=== PATIENT | female | born 1950 | race African-American/Black ===

== ENCOUNTER 2018-01-31 15:17 | Inpatient (IN) | payer MEDICARE, MEDICAID ==
[~2018-01-31] VITALS: Ht 172.7 cm; Wt 90.7 kg
[~2018-01-31 15:17] MED LIST: ACET1TAB12 PO; AMLO10TA80 PO; DIPH25CA83 PO; GABA-529 PO; LISI10TA5 PO; LOSA50TA20 PO; RANI150T7 PO; SEVE800T8 PO; SIMV20TA6 PO
[2018-01-31] MEDS ORDERED: ONDANSETRON HCL 4MG/2ML VIAL IV STA (16:26)
[2018-01-31] MEDS ORDERED: FUROSEMIDE 40MG/4ML VIAL IV STA (16:26)
[2018-01-31 16:55] LABS: BG BASE EXCESS -2.8 mmol/L (-2.0-2.0); BG CARBOXYHEMOGLOBIN 1.2 % (0.5-1.5); BG DEOXYHEMOGLOBIN 9.4 % (0.0-5.0); BG FRACTION INSPIRED OXYGEN 28; BG HCO3 ACT 22.8 mmol/L (22.0-26.0); BG METHEMOGLOBIN 0.3 % (0.0-1.5); BG OXYGEN SATURATION 90.5 % (92.0-98.5); BG OXYHEMOGLOBIN 89.1 % (94.0-97.0); BG PCO2 42.5 mmHg (35.0-45.0); BG PH 7.347 (7.350-7.450); BG PO2 65.6 mmHg (75.0-100.0); BG SAMPLE SITE RIGHT BRACHIAL; BG TOTAL HEMOGLOBIN 11.1 g/dL (12.0-18.0); BG VENT MODE NASAL CANNULA
[2018-01-31 16:57] LABS: HEMATOCRIT. 31.7 % (36.0-48.0); HEMOGLOBIN. 10.4 g/dL (12.0-16.0); MEAN CORPUSCULAR VOLUME 91.3 fL (81.0-99.0); MEAN PLATELET VOLUME 9.1 fl (7.4-10.4); PLATELET 126 x1000/uL (130-400); RED BLOOD CELL COUNT 3.48 mill/uL (4.2-5.4); RED CELL DISTRIBUTION WIDTH 14.3 % (11.6-14.6)
[2018-01-31 16:59] LABS: D-DIMER 0.56 mg/L FEU (<0.50); INR 1.1; PROTHROMBIN TIME 11.8 sec (9.4-11.6)
[2018-01-31 17:02] LABS: CREATINE KINASE 168 IU/L (26-192)
[2018-01-31 17:04] LABS: CHLORIDE 107 mEq/L (98-107)
[2018-01-31 17:14] LABS: PLATELET ESTIMATE DECREASED
[2018-01-31] MEDS ORDERED: IPRATROPIUM/ALBUTEROL 0.5-3(2.5)MG/3ML NEB HHN ONE (17:45)
[2018-01-31] MEDS ORDERED: FUROSEMIDE 100MG/10ML VIAL IV STA (19:12)
[2018-01-31] MEDS ORDERED: PIPERACILLIN/TAZ 3.375G PREMIX 50 ML IV ONE (19:15)
[2018-01-31] MEDS ORDERED: CALCIUM CHLORIDE 1GM/10ML SYR IV ONE (19:15)
[2018-01-31] MEDS ORDERED: SODIUM BICARBONATE 8.4% 1 MEQ/ML 50ML SYR IV ONE (19:15)
[2018-01-31] MEDS ORDERED: SODIUM POLYSTYRENE SULFONATE 15 G/60 ML BOT PO ONE (19:15)
[2018-01-31] MEDS ORDERED: ONDANSETRON HCL 4MG/2ML VIAL IV PRN (21:45)
[2018-01-31] MEDS ORDERED: MAGNESIUM/ALUMINUM HYDROXIDE/SIMETHICONE 30ML UDC PO PRN (21:45)
[2018-01-31] MEDS ORDERED: IPRATROPIUM/ALBUTEROL 0.5-3(2.5)MG/3ML NEB INH PRN (21:45)
[2018-01-31] MEDS ORDERED: CLONIDINE 0.1MG TABLET PO PRN (21:45)
[2018-01-31 22:30] VITALS: BP 163/123
[2018-01-31 23:00] VITALS: BP 204/90
[2018-01-31] MEDS: SODIUM CHLORIDE 0.9% INJ 3ML FLUSH IVF SCH (23:00)
[2018-02-01] VITALS (15 sets, daily range): BP systolic 107–190; BP diastolic 45–91
[2018-02-01] MEDS: SODIUM CHLORIDE 0.9% INJ 3ML FLUSH IVF SCH ×3 (06:19→21:06)
[2018-02-01] MEDS ORDERED: LISINOPRIL 10MG TABLET PO SCH (09:00)
[2018-02-01 09:12] LABS: HEMATOCRIT. 29.1 % (36.0-48.0); HEMOGLOBIN. 9.8 g/dL (12.0-16.0); MEAN CORPUSCULAR HEMOGLOBIN 30.5 pg (28.0-32.0); MEAN PLATELET VOLUME 9.6 fl (7.4-10.4); PLATELET 106 x1000/uL (130-400); RED CELL DISTRIBUTION WIDTH 14.1 % (11.6-14.6)
[2018-02-01] MEDS: AMLODIPINE 10MG TABLET PO SCH (09:38)
[2018-02-01] MEDS: SEVELAMER CARBONATE 800 MG TABLET PO SCH (09:38)
[2018-02-01] MEDS: GABAPENTIN 100MG CAPSULE PO SCH ×3 (09:39→16:51)
[2018-02-01 09:53] LABS: PLATELET ESTIMATE DECREASED
[2018-02-01] MEDS ORDERED: LEVOFLOXACIN 500MG TABLET PO SCH (14:00)
[2018-02-01] MEDS ORDERED: PIPERACILLIN/TAZ 3.375G PREMIX 50 ML IV SCH (14:15)
[2018-02-01] MEDS: HYDRALAZINE HCL 50MG TABLET PO SCH ×2 (15:11→21:06)
[2018-02-01] MEDS: PIPERACILLIN/TAZ 2.25G PREMIX 50 ML IV SCH (16:05)
[2018-02-01] MEDS ORDERED: VANCOMYCIN 1,750 MG in DEXT 5% WATER 500 ML IV NR (17:00)
[2018-02-01] MEDS ORDERED: VANCOMYCIN 1,500 MG in DEXT 5% WATER 250 ML IV NR (18:00)
[2018-02-01] MEDS: IPRATROPIUM/ALBUTEROL 0.5-3(2.5)MG/3ML NEB HHN SCH (20:20)
[2018-02-01] MEDS: GUAIFENESIN 600MG ER TABLET PO SCH (21:06)
[2018-02-02] VITALS (14 sets, daily range): BP systolic 96–137; BP diastolic 42–67
[2018-02-02] MEDS: IPRATROPIUM/ALBUTEROL 0.5-3(2.5)MG/3ML NEB HHN SCH ×4 (01:54→20:24)
[2018-02-02] MEDS: SODIUM CHLORIDE 0.9% INJ 3ML FLUSH IVF SCH ×3 (05:19→21:48)
[2018-02-02] MEDS: PIPERACILLIN/TAZ 2.25G PREMIX 50 ML IV SCH ×2 (05:19→18:17)
[2018-02-02] MEDS: HYDRALAZINE HCL 50MG TABLET PO SCH ×3 (05:19→21:48)
[2018-02-02 06:56] LABS: HEMATOCRIT. 28.9 % (36.0-48.0); HEMOGLOBIN. 9.7 g/dL (12.0-16.0); MEAN CORPUSCULAR HEMOGLOBIN 30.4 pg (28.0-32.0); MEAN CORPUSCULAR VOLUME 90.9 fL (81.0-99.0); PLATELET 105 x1000/uL (130-400); RED BLOOD CELL COUNT 3.19 mill/uL (4.2-5.4)
[2018-02-02 08:12] LABS: PLATELET ESTIMATE DECREASED
[2018-02-02] MEDS: GABAPENTIN 100MG CAPSULE PO SCH ×3 (08:49→17:00)
[2018-02-02] MEDS: SEVELAMER CARBONATE 800 MG TABLET PO SCH ×3 (08:49→18:16)
[2018-02-02] MEDS: GUAIFENESIN 600MG ER TABLET PO SCH ×2 (08:49→20:14)
[2018-02-02] MEDS: AMLODIPINE 10MG TABLET PO SCH (08:49)
[2018-02-02] MEDS ORDERED: VANCOMYCIN 750 MG PREMIX 150 ML IV SCH (20:00)
[2018-02-03] VITALS (12 sets, daily range): BP systolic 103–154; BP diastolic 47–80
[2018-02-03] MEDS: IPRATROPIUM/ALBUTEROL 0.5-3(2.5)MG/3ML NEB HHN SCH ×4 (02:19→20:45)
[2018-02-03 04:53] LABS: BG BASE EXCESS 3.8 mmol/L (-2.0-2.0); BG CARBOXYHEMOGLOBIN 0.5 % (0.5-1.5); BG DEOXYHEMOGLOBIN 17.5 % (0.0-5.0); BG FRACTION INSPIRED OXYGEN 21; BG HCO3 ACT 28.1 mmol/L (22.0-26.0); BG METHEMOGLOBIN 0.3 % (0.0-1.5); BG OXYGEN SATURATION 82.4 % (92.0-98.5); BG OXYHEMOGLOBIN 81.7 % (94.0-97.0); BG PCO2 41.3 mmHg (35.0-45.0); BG PH 7.451 (7.350-7.450); BG PO2 46.9 mmHg (75.0-100.0); BG SAMPLE SITE RIGHT RADIAL; BG TOTAL HEMOGLOBIN 11.3 g/dL (12.0-18.0); BG VENT MODE ROOM AIR
[2018-02-03] MEDS: SODIUM CHLORIDE 0.9% INJ 3ML FLUSH IVF SCH ×3 (05:35→20:58)
[2018-02-03] MEDS: HYDRALAZINE HCL 50MG TABLET PO SCH ×3 (05:36→21:01)
[2018-02-03] MEDS: PIPERACILLIN/TAZ 2.25G PREMIX 50 ML IV SCH ×2 (05:36→17:22)
[2018-02-03 06:59] LABS: HEMATOCRIT. 30.4 % (36.0-48.0); MEAN CORPUSCULAR HEMOGLOBIN 30.1 pg (28.0-32.0); MEAN CORPUSCULAR VOLUME 91.2 fL (81.0-99.0); MEAN PLATELET VOLUME 9.8 fl (7.4-10.4); PLATELET 140 x1000/uL (130-400); RED BLOOD CELL COUNT 3.33 mill/uL (4.2-5.4)
[2018-02-03] MEDS: ACETAMINOPHEN 325MG TABLET PO PRN ×2 (07:04→15:43)
[2018-02-03] MEDS: SEVELAMER CARBONATE 800 MG TABLET PO SCH ×3 (08:00→17:22)
[2018-02-03] MEDS: AMLODIPINE 10MG TABLET PO SCH (09:00)
[2018-02-03] MEDS: GUAIFENESIN 600MG ER TABLET PO SCH ×2 (09:00→20:58)
[2018-02-03] MEDS: GABAPENTIN 100MG CAPSULE PO SCH ×3 (09:00→17:22)
[2018-02-03 09:16] LABS: PLATELET ESTIMATE NORMAL
[2018-02-04] VITALS (12 sets, daily range): BP systolic 99–142; BP diastolic 45–72
[2018-02-04] MEDS: IPRATROPIUM/ALBUTEROL 0.5-3(2.5)MG/3ML NEB HHN SCH ×4 (02:15→19:39)
[2018-02-04] MEDS: SODIUM CHLORIDE 0.9% INJ 3ML FLUSH IVF SCH ×3 (06:04→20:28)
[2018-02-04] MEDS: PIPERACILLIN/TAZ 2.25G PREMIX 50 ML IV SCH ×2 (06:04→17:09)
[2018-02-04] MEDS: HYDRALAZINE HCL 50MG TABLET PO SCH ×3 (06:07→20:28)
[2018-02-04] MEDS: DIPHENHYDRAMINE 50MG/ML VIAL IV PRN (06:09)
[2018-02-04] MEDS: GABAPENTIN 100MG CAPSULE PO SCH ×3 (08:20→17:09)
[2018-02-04] MEDS: SEVELAMER CARBONATE 800 MG TABLET PO SCH ×3 (08:20→17:09)
[2018-02-04] MEDS: AMLODIPINE 10MG TABLET PO SCH (08:21)
[2018-02-04] MEDS: GUAIFENESIN 600MG ER TABLET PO SCH ×2 (08:41→20:26)
[2018-02-04] MEDS: ACETAMINOPHEN 325MG TABLET PO PRN (13:06)
[2018-02-05] VITALS (11 sets, daily range): BP systolic 119–151; BP diastolic 55–76
[2018-02-05] MEDS: DIPHENHYDRAMINE 50MG/ML VIAL IV PRN (00:13)
[2018-02-05] MEDS: IPRATROPIUM/ALBUTEROL 0.5-3(2.5)MG/3ML NEB HHN SCH ×4 (01:50→14:10)
[2018-02-05] MEDS: SODIUM CHLORIDE 0.9% INJ 3ML FLUSH IVF SCH ×2 (06:32→13:50)
[2018-02-05] MEDS: PIPERACILLIN/TAZ 2.25G PREMIX 50 ML IV SCH ×2 (06:32→18:13)
[2018-02-05] MEDS: HYDRALAZINE HCL 50MG TABLET PO SCH ×2 (06:32→13:50)
[2018-02-05] MEDS: SEVELAMER CARBONATE 800 MG TABLET PO SCH ×3 (08:42→18:15)
[2018-02-05] MEDS: GABAPENTIN 100MG CAPSULE PO SCH ×3 (08:42→18:13)
[2018-02-05] MEDS: GUAIFENESIN 600MG ER TABLET PO SCH (08:43)
[2018-02-05] MEDS: AMLODIPINE 10MG TABLET PO SCH (08:43)
[2018-02-05 10:12] LABS: HEMATOCRIT. 30.7 % (36.0-48.0); HEMOGLOBIN. 10.1 g/dL (12.0-16.0); MEAN CORPUSCULAR HEMOGLOBIN 29.8 pg (28.0-32.0); MEAN CORPUSCULAR VOLUME 90.4 fL (81.0-99.0); PLATELET 153 x1000/uL (130-400); RED BLOOD CELL COUNT 3.39 mill/uL (4.2-5.4); RED CELL DISTRIBUTION WIDTH 13.6 % (11.6-14.6)
[2018-02-05 12:17] LABS: PLATELET ESTIMATE NORMAL
[2018-02-05] MEDS ORDERED: VANCOMYCIN 1 G PREMIX 200 ML IV SCH (16:00)
== END 2018-02-05 20:10 | disposition home or self-care (01) | DRG 720 ==
LOC: ER 15:47 → 5EST 19:39 → EDBEDREQ 19:42 → EDBEDREQTM 19:42 → ENRESERV 19:43 → 5EST 02-03 07:00
PROVIDERS: ADMIT Internal Medicine; ATTEND Internal Medicine
PROC: 5A1D70Z Performance of Urinary Filtration, Intermittent, Less than 6 Hours Per Day (ICD-10-PCS; principal; 2018-01-31)
PROC: 5A1D70Z Performance of Urinary Filtration, Intermittent, Less than 6 Hours Per Day (ICD-10-PCS; 2018-02-02)
PROC: 5A1D70Z Performance of Urinary Filtration, Intermittent, Less than 6 Hours Per Day (ICD-10-PCS; 2018-02-05)
DX: A41.9 Sepsis, unspecified organism (principal); J96.01 Acute respiratory failure with hypoxia; I50.33 Acute on chronic diastolic (congestive) heart failure; E46 Unspecified protein-calorie malnutrition; N18.6 End stage renal disease; E11.22 Type 2 diabetes mellitus with diabetic chronic kidney disease; J18.1 Lobar pneumonia, unspecified organism; I27.20 Pulmonary hypertension, unspecified; I13.2 Hypertensive heart and chronic kidney disease with heart failure and with stage 5 chronic kidney disease, or end stage renal disease; I07.1 Rheumatic tricuspid insufficiency; E87.5 Hyperkalemia; E66.01 Morbid (severe) obesity due to excess calories; D64.9 Anemia, unspecified; J20.9 Acute bronchitis, unspecified; Z68.30 Body mass index [BMI] 30.0-30.9, adult; Z83.3 Family history of diabetes mellitus; Z91.15 Patient's noncompliance with renal dialysis; Z99.2 Dependence on renal dialysis; Z88.6 Allergy status to analgesic agent; Z88.1 Allergy status to other antibiotic agents; Z79.899 Other long term (current) drug therapy; Z90.49 Acquired absence of other specified parts of digestive tract; Z88.0 Allergy status to penicillin; Z80.9 Family history of malignant neoplasm, unspecified
CPT/HCPCS: 36415; 36600; 71045; 80048; 80051; 80053; 80202; 82375; 82550; 82805; 82962; 83605; 83690; 83880; 84443; 84484; 85025; 85379; 85610; 87040; 87077; 87186; 93005; 94640; 96365; 96375; 96376; 97162; 97166; 99285; J1200; J1940; J2543; J3370; J3490; J7030; J7050; J7060; J7620

== ENCOUNTER 2018-07-24 10:12 | Inpatient (IN) | payer MEDICARE, MEDICAID ==
[~2018-07-24] VITALS: Ht 160 cm; Wt 65.8 kg
[2018-07-24] MEDS ORDERED: ONDANSETRON HCL 4MG/2ML INJ IV STA (11:09)
[2018-07-24] MEDS ORDERED: MORPHINE SULFATE 4 MG/ML CPJ (NOT FOR IM USE) IV STA (11:09)
[2018-07-24 11:50] LABS: BASOPHILS % 0.5 % (0.0-2.0); HEMOGLOBIN. 10.1 g/dL (12.0-16.0); LYMPHOCYTES % 13.1 % (20.0-50.0); MEAN PLATELET VOLUME 8.5 fl (7.4-10.4); MONOCYTES % 13.9 % (2.0-8.0); NEUTROPHILS % 71.5 % (40.0-76.0); PLATELET 213 x1000/uL (130-400); RED BLOOD CELL COUNT 3.26 mill/uL (4.2-5.4); RED CELL DISTRIBUTION WIDTH 13.9 % (11.6-14.6)
[2018-07-24 11:57] LABS: CHLORIDE 88 mEq/L (98-107)
[2018-07-24 11:58] LABS: INR 1.2; PROTHROMBIN TIME 11.6 sec (9.1-11.1)
[2018-07-24] MEDS ORDERED: INSULIN REGULAR (HUMULIN R) 300UNITS/3ML IV ONE (13:45)
[2018-07-24] MEDS ORDERED: CALCIUM CHLORIDE 1GM/10ML SYR IV ONE (13:45)
[2018-07-24] MEDS ORDERED: SODIUM POLYSTYRENE SULFONATE 15 G/60 ML BOT PO ONE (13:45)
[2018-07-24] MEDS ORDERED: SODIUM BICARBONATE 8.4% 1 MEQ/ML 50ML SYR IV ONE (13:45)
[2018-07-24] MEDS ORDERED: DEXTROSE 50% WATER 50ML SYRINGE IV ONE (13:45)
[2018-07-24] MEDS ORDERED: ONDANSETRON HCL 4MG/2ML INJ IV PRN (14:45)
[2018-07-24] MEDS ORDERED: DEXTROSE 50% WATER 50ML SYRINGE IV PRN (14:45)
[2018-07-24] MEDS: INSULIN LISPRO 100 UNITS/ML SUBCUT SCH ×2 (17:26→21:47)
[2018-07-24] MEDS: BLOOD SUGAR DIAGNOSTIC STRIP TEST SCH ×2 (17:26→21:37)
[2018-07-24 18:19] VITALS: BP 120/53
[2018-07-24 18:20] VITALS: BP 120/53
[2018-07-24] MEDS ORDERED: HYDRALAZINE 20MG/ML VIAL IV PRN (18:30)
[2018-07-24 20:00] VITALS: BP 103/48
[2018-07-24] MEDS ORDERED: LACTULOSE 20G/30ML UDC PO PRN (21:00)
[2018-07-24] MEDS: DOCUSATE SODIUM 250MG CAPSULE PO SCH (21:46)
[2018-07-24] MEDS ORDERED: CIPR500S3 PO (22:25)
[2018-07-24] MEDS ORDERED: SULF-288 PO (22:28)
[2018-07-25] VITALS: BP 116/53
[2018-07-25] MEDS ORDERED: DIPHENHYDRAMINE 25MG CAPSULE PO PRN (02:45)
[2018-07-25] MEDS: ACETAMINOPHEN 325MG TABLET PO PRN (03:05)
[2018-07-25 04:00] VITALS: BP 121/97
[2018-07-25 04:34] LABS: CLARITY URINE CLOUDY (CLEAR); COLOR URINE AMBER (YELLOW); KETONES URINE TRACE (NEGATIVE); LEUKOCYTE ESTERASE URINE 1+ (NEGATIVE); NITRITE URINE NEGATIVE (NEGATIVE); OCCULT BLOOD URINE NEGATIVE (NEGATIVE); PROTEIN URINE 1+ (NEGATIVE); SPECIFIC GRAVITY URINE 1.017 (1.005-1.030); UROBILINOGEN URINE 0.2 E.U./dL (0.2-1.0)
[2018-07-25] MEDS: BLOOD SUGAR DIAGNOSTIC STRIP TEST SCH ×4 (06:02→20:23)
[2018-07-25 07:15] LABS: HEMATOCRIT. 28.4 % (36.0-48.0); HEMOGLOBIN. 9.6 g/dL (12.0-16.0); MEAN CORPUSCULAR HEMOGLOBIN 31.1 pg (28.0-32.0); MEAN CORPUSCULAR VOLUME 92.2 fL (81.0-99.0); MEAN PLATELET VOLUME 8.7 fl (7.4-10.4); PLATELET 183 x1000/uL (130-400); RED BLOOD CELL COUNT 3.08 mill/uL (4.2-5.4); RED CELL DISTRIBUTION WIDTH 14.3 % (11.6-14.6)
[2018-07-25 08:00] VITALS: BP 96/50
[2018-07-25] MEDS: DOCUSATE SODIUM 250MG CAPSULE PO SCH (08:53)
[2018-07-25] MEDS: INSULIN LISPRO 100 UNITS/ML SUBCUT SCH ×4 (08:57→20:23)
[2018-07-25 12:00] VITALS: BP 117/46
[2018-07-25 14:05] LABS: PLATELET ESTIMATE NORMAL
[2018-07-25] MEDS ORDERED: VANCOMYCIN 1250MG in DEXTROSE 5% WATER 250ML IV NR (18:00)
[2018-07-25 20:00] VITALS: BP 122/37
[2018-07-25] MEDS ORDERED: MAGNESIUM/ALUMINUM HYDROXIDE/SIMETHICONE 30ML UDC PO PRN (23:15)
[2018-07-26 00:05] VITALS: BP 133/59
[2018-07-26 04:00] VITALS: BP 118/56
[2018-07-26 07:28] LABS: HEMATOCRIT 29.4 % (36.0-48.0); HEMOGLOBIN 9.8 g/dL (12.0-16.0); MEAN CORPUSCULAR HEMOGLOBIN 30.7 pg (28.0-32.0); MEAN CORPUSCULAR VOLUME 92.3 fL (81.0-99.0); PLATELET 183 x1000/uL (130-400); RED BLOOD CELL COUNT 3.18 mill/uL (4.2-5.4)
[2018-07-26] MEDS: BLOOD SUGAR DIAGNOSTIC STRIP TEST SCH ×3 (07:40→17:57)
[2018-07-26 08:00] VITALS: BP 117/50
[2018-07-26] MEDS: INSULIN LISPRO 100 UNITS/ML SUBCUT SCH ×3 (08:10→17:57)
[2018-07-26] MEDS: DOCUSATE SODIUM 250MG CAPSULE PO SCH (10:53)
[2018-07-26 12:00] VITALS: BP 118/54
[2018-07-26] MEDS: ACETAMINOPHEN 325MG TABLET PO PRN (13:39)
[2018-07-26 16:00] VITALS: BP 116/43
[2018-07-26 20:18] VITALS: BP 128/55
== END 2018-07-26 20:55 | disposition home or self-care (01) | DRG 720 ==
LOC: ER 12:28 → 7WST 14:18 → ENRESERV 15:38
PROVIDERS: ADMIT Internal Medicine; ATTEND Internal Medicine
PROC: 5A1D70Z Performance of Urinary Filtration, Intermittent, Less than 6 Hours Per Day (ICD-10-PCS; principal; 2018-07-24)
PROC: 5A1D70Z Performance of Urinary Filtration, Intermittent, Less than 6 Hours Per Day (ICD-10-PCS; 2018-07-26)
DX: A41.9 Sepsis, unspecified organism (principal); I13.2 Hypertensive heart and chronic kidney disease with heart failure and with stage 5 chronic kidney disease, or end stage renal disease; E44.0 Moderate protein-calorie malnutrition; E87.2 Acidosis; N18.6 End stage renal disease; E11.22 Type 2 diabetes mellitus with diabetic chronic kidney disease; I27.20 Pulmonary hypertension, unspecified; E11.42 Type 2 diabetes mellitus with diabetic polyneuropathy; E11.69 Type 2 diabetes mellitus with other specified complication; M86.8X7 Other osteomyelitis, ankle and foot; E11.621 Type 2 diabetes mellitus with foot ulcer; K59.00 Constipation, unspecified; D63.8 Anemia in other chronic diseases classified elsewhere; E11.65 Type 2 diabetes mellitus with hyperglycemia; E87.1 Hypo-osmolality and hyponatremia; L97.514 Non-pressure chronic ulcer of other part of right foot with necrosis of bone; E78.5 Hyperlipidemia, unspecified; E87.5 Hyperkalemia; I50.9 Heart failure, unspecified; Z79.4 Long term (current) use of insulin; Z83.3 Family history of diabetes mellitus; Z86.73 Personal history of transient ischemic attack (TIA), and cerebral infarction without residual deficits; Z99.2 Dependence on renal dialysis; Z89.421 Acquired absence of other right toe(s); Z90.49 Acquired absence of other specified parts of digestive tract; Z91.15 Patient's noncompliance with renal dialysis; Z68.25 Body mass index [BMI] 25.0-25.9, adult; Z88.6 Allergy status to analgesic agent; Z88.1 Allergy status to other antibiotic agents; Z79.1 Long term (current) use of non-steroidal anti-inflammatories (NSAID); Z79.899 Other long term (current) drug therapy
CPT/HCPCS: 36415; 73630; 74176; 80048; 82962; 83036; 85027; 85651; 86140; 93306; 93923; 96374; 99285; J1815; J2270; J2405; J3370; J7030; J7050; J7060; Q0163

== ENCOUNTER 2018-11-23 07:20 | Inpatient (IN) | payer MEDICARE, MEDICAID ==
[~2018-11-23] VITALS: Ht 160 cm; Wt 88.9 kg
[~2018-11-23 07:20] MED LIST changes: -ACET1TAB12 PO; -DIPH25CA83 PO; -LISI10TA5 PO; -RANI150T7 PO
[2018-11-23] MEDS ORDERED: MORPHINE SULFATE 4 MG/ML CPJ (NOT FOR IM USE) IV ONE (07:45)
[2018-11-23] MEDS ORDERED: ONDANSETRON HCL 4MG/2ML INJ IV ONE (07:45)
[2018-11-23 08:28] LABS: BASOPHILS % 0.8 % (0.0-2.0); EOSINOPHILS % 1.6 % (0.0-5.0); HEMATOCRIT. 33.2 % (36.0-48.0); LYMPHOCYTES % 9.7 % (20.0-50.0); MEAN CORPUSCULAR HEMOGLOBIN 32.3 pg (28.0-32.0); MEAN CORPUSCULAR VOLUME 97.2 fL (81.0-99.0); MONOCYTES % 14.3 % (2.0-8.0); NEUTROPHILS % 73.6 % (40.0-76.0); PLATELET 132 x1000/uL (130-400); RED BLOOD CELL COUNT 3.42 mill/uL (4.2-5.4); RED CELL DISTRIBUTION WIDTH 15.2 % (11.6-14.6)
[2018-11-23 08:35] LABS: CHLORIDE 97 mEq/L (98-107)
[2018-11-23 08:41] LABS: PHOSPHORUS 6.8 mg/dL (2.5-4.9)
[2018-11-23 08:43] LABS: INR 1.1; PARTIAL THROMBOPLASTIN TIME 26.9 sec (23.4-31.0); PROTHROMBIN TIME 10.7 sec (9.1-11.1)
[2018-11-23] MEDS ORDERED: SODIUM POLYSTYRENE SULFONATE 15 G/60 ML BOT PO ONE (09:00)
[2018-11-23] MEDS ORDERED: ONDANSETRON HCL 4MG/2ML INJ IV PRN (10:15)
[2018-11-23] MEDS ORDERED: DIPHENHYDRAMINE 50MG/ML VIAL IV PRN (10:15)
[2018-11-23] MEDS ORDERED: CLONIDINE 0.1MG TABLET PO PRN (10:15)
[2018-11-23] MEDS ORDERED: DOCUSATE SODIUM 100MG CAPSULE PO PRN (10:15)
[2018-11-23] MEDS ORDERED: GUAIFENESIN 200MG/10ML SUGAR FREE UDC PO PRN (10:15)
[2018-11-23] MEDS ORDERED: NA PHOS,M-B/NA PHOS,DI-BA ENEMA 118ML PR PRN (10:15)
[2018-11-23] MEDS ORDERED: MAGNESIUM/ALUMINUM HYDROXIDE/SIMETHICONE 30ML UDC PO PRN (10:15)
[2018-11-23] MEDS: SEVELAMER CARBONATE 800 MG TABLET PO SCH (10:45)
[2018-11-23] MEDS: GABAPENTIN 100MG CAPSULE PO SCH ×2 (14:00→22:00)
[2018-11-23] MEDS: AMLODIPINE 10MG TABLET PO SCH (14:00)
[2018-11-23 14:23] VITALS: BP 137/90
[2018-11-23 14:45] VITALS: BP 120/52
[2018-11-23 16:00] VITALS: BP 128/42
[2018-11-23 18:26] VITALS: BP 106/52
[2018-11-23 20:00] VITALS: BP 106/48
[2018-11-24 00:05] VITALS: BP 110/43
[2018-11-24 04:00] VITALS: BP 133/53
[2018-11-24 05:49] LABS: HEMATOCRIT. 30.9 % (36.0-48.0); HEMOGLOBIN. 10.2 g/dL (12.0-16.0); MEAN CORPUSCULAR VOLUME 96.8 fL (81.0-99.0); MEAN PLATELET VOLUME 9.8 fl (7.4-10.4); PLATELET 132 x1000/uL (130-400); RED BLOOD CELL COUNT 3.19 mill/uL (4.2-5.4); RED CELL DISTRIBUTION WIDTH 15.3 % (11.6-14.6)
[2018-11-24] MEDS: GABAPENTIN 100MG CAPSULE PO SCH ×3 (05:57→20:27)
[2018-11-24 06:21] LABS: CHLORIDE 101 mEq/L (98-107)
[2018-11-24 06:34] LABS: LDL CHOLESTEROL 41 mg/dL (5-100)
[2018-11-24 06:35] LABS: HDL CHOLESTEROL 69 mg/dL (40-59)
[2018-11-24 08:00] VITALS: BP 134/44
[2018-11-24] MEDS: LOSARTAN POTASSIUM 25 MG TABLET PO SCH (09:04)
[2018-11-24] MEDS: AMLODIPINE 10MG TABLET PO SCH (09:04)
[2018-11-24] MEDS: SEVELAMER CARBONATE 800 MG TABLET PO SCH (09:04)
[2018-11-24 12:00] VITALS: BP 128/56
[2018-11-24 12:19] LABS: PLATELET ESTIMATE NORMAL
[2018-11-24 16:00] VITALS: BP 100/65
[2018-11-24 20:05] VITALS: BP 103/55
[2018-11-25 00:05] VITALS: BP 115/63
[2018-11-25 04:00] VITALS: BP 118/66
[2018-11-25] MEDS: GABAPENTIN 100MG CAPSULE PO SCH ×3 (05:28→20:39)
[2018-11-25 06:09] LABS: HEMATOCRIT. 30.5 % (36.0-48.0); HEMOGLOBIN. 10.2 g/dL (12.0-16.0); MEAN CORPUSCULAR HEMOGLOBIN 32.5 pg (28.0-32.0); MEAN CORPUSCULAR VOLUME 97.4 fL (81.0-99.0); MEAN PLATELET VOLUME 9.9 fl (7.4-10.4); PLATELET 124 x1000/uL (130-400); RED BLOOD CELL COUNT 3.13 mill/uL (4.2-5.4); RED CELL DISTRIBUTION WIDTH 15.2 % (11.6-14.6)
[2018-11-25 06:44] LABS: PHOSPHORUS 7.7 mg/dL (2.5-4.9)
[2018-11-25 08:00] VITALS: BP 108/59
[2018-11-25] MEDS: SEVELAMER CARBONATE 800 MG TABLET PO SCH (08:47)
[2018-11-25] MEDS: AMLODIPINE 10MG TABLET PO SCH (08:48)
[2018-11-25] MEDS: LOSARTAN POTASSIUM 25 MG TABLET PO SCH (08:48)
[2018-11-25 12:00] VITALS: BP 106/55
[2018-11-25 13:40] LABS: PLATELET ESTIMATE SLIGHTLY DECREASED
[2018-11-25] MEDS: ACETAMINOPHEN 325MG TABLET PO PRN (14:01)
[2018-11-25 16:00] VITALS: BP_SYST 105; BP_DIAS 49; BP_DIAS 59
[2018-11-25 20:00] VITALS: BP 106/51
[2018-11-26 00:05] VITALS: BP 117/53
[2018-11-26] MEDS: ACETAMINOPHEN 325MG TABLET PO PRN ×2 (01:19→09:38)
[2018-11-26 04:00] VITALS: BP 114/55
[2018-11-26] MEDS: GABAPENTIN 100MG CAPSULE PO SCH ×2 (05:32→13:39)
[2018-11-26 05:57] LABS: HEMOGLOBIN. 9.6 g/dL (12.0-16.0); MEAN CORPUSCULAR HEMOGLOBIN 31.9 pg (28.0-32.0); MEAN CORPUSCULAR VOLUME 96.6 fL (81.0-99.0); PLATELET 121 x1000/uL (130-400); RED CELL DISTRIBUTION WIDTH 14.5 % (11.6-14.6)
[2018-11-26 08:00] VITALS: BP 115/53
[2018-11-26] MEDS: LOSARTAN POTASSIUM 25 MG TABLET PO SCH (09:28)
[2018-11-26] MEDS: SEVELAMER CARBONATE 800 MG TABLET PO SCH ×2 (09:28→13:39)
[2018-11-26] MEDS: AMLODIPINE 10MG TABLET PO SCH (09:29)
[2018-11-26] MEDS ORDERED: DEXTROSE 50% WATER 50ML SYRINGE IV PRN (10:30)
[2018-11-26] MEDS ORDERED: HYDROCODONE/ACETAMINOPHEN 5/325MG TABLET PO PRN (11:15)
[2018-11-26 11:37] LABS: PLATELET ESTIMATE DECREASED
[2018-11-26 12:00] VITALS: BP 111/47
[2018-11-26] MEDS ORDERED: BLOOD SUGAR DIAGNOSTIC STRIP TEST SCH ×2 (12:40)
[2018-11-26] MEDS ORDERED: INSULIN LISPRO 100 UNITS/ML SUBCUT SCH (13:10)
[2018-11-26 16:00] VITALS: BP 112/57
[2018-11-26 17:29] LABS: BG BASE EXCESS -4.4 mmol/L (-2.0-2.0); BG CARBOXYHEMOGLOBIN 0.9 % (0.5-1.5); BG DEOXYHEMOGLOBIN 9.2 % (0.0-5.0); BG FRACTION INSPIRED OXYGEN 21; BG HCO3 ACT 21.8 mmol/L (22.0-26.0); BG METHEMOGLOBIN 0.3 % (0.0-1.5); BG OXYGEN SATURATION 90.7 % (92.0-98.5); BG OXYHEMOGLOBIN 89.6 % (94.0-97.0); BG PCO2 45.1 mmHg (35.0-45.0); BG PH 7.303 (7.350-7.450); BG PO2 69.2 mmHg (75.0-100.0); BG SAMPLE SITE RIGHT BRACHIAL; BG TOTAL HEMOGLOBIN 11.4 g/dL (12.0-18.0); BG VENT MODE ROOM AIR
[2018-11-26 19:35] VITALS: BP 116/48
[2018-11-26] MEDS ORDERED: EPOETIN ALFA 10000UNITS/ML VIAL SUBCUT SCH (21:00)
== END 2018-11-26 20:50 | disposition home health service (06) | DRG 194 ==
LOC: ER 07:20 → 7WST 09:20 → EDBEDREQ 09:29 → SUPCPDRO 10:13 → ENRESERV 10:57
PROVIDERS: ADMIT Internal Medicine; ATTEND Internal Medicine
PROC: 5A1D70Z Performance of Urinary Filtration, Intermittent, Less than 6 Hours Per Day (ICD-10-PCS; principal; 2018-11-23)
PROC: 5A1D70Z Performance of Urinary Filtration, Intermittent, Less than 6 Hours Per Day (ICD-10-PCS; 2018-11-26)
DX: I13.2 Hypertensive heart and chronic kidney disease with heart failure and with stage 5 chronic kidney disease, or end stage renal disease (principal); E43 Unspecified severe protein-calorie malnutrition; E11.22 Type 2 diabetes mellitus with diabetic chronic kidney disease; E11.40 Type 2 diabetes mellitus with diabetic neuropathy, unspecified; I50.33 Acute on chronic diastolic (congestive) heart failure; E83.39 Other disorders of phosphorus metabolism; N18.6 End stage renal disease; E87.5 Hyperkalemia; E83.41 Hypermagnesemia; D64.9 Anemia, unspecified; R09.02 Hypoxemia; Z99.2 Dependence on renal dialysis; Z68.34 Body mass index [BMI] 34.0-34.9, adult; Z79.899 Other long term (current) drug therapy; Z91.15 Patient's noncompliance with renal dialysis; Z88.1 Allergy status to other antibiotic agents; Z88.6 Allergy status to analgesic agent
CPT/HCPCS: 36415; 36600; 71045; 80048; 80051; 80061; 82375; 82805; 82962; 83036; 83735; 84100; 84484; 93005; 93970; 94618; 96374; 96375; 97161; 99285; J0885; J1815; J2270; J2405; J7040

== ENCOUNTER 2019-06-08 15:07 | Inpatient (IN) | payer MEDICARE, OTHER ==
[~2019-06-08] VITALS: Ht 167.6 cm; Wt 94.8 kg
[~2019-06-08 15:07] MED LIST changes: -LOSA50TA20 PO; +LOSA50TA41 PO
[2019-06-08] MEDS ORDERED: NITROGLYCERIN OINT 1GM/INCH UDPKT TD ONE (15:30)
[2019-06-08 15:35] LABS: BASOPHILS % 1.2 % (0.0-2.0); EOSINOPHILS % 1.8 % (0.0-5.0); HEMATOCRIT. 30.4 % (36.0-48.0); HEMOGLOBIN. 10.2 g/dL (12.0-16.0); LYMPHOCYTES % 20.9 % (20.0-50.0); MEAN CORPUSCULAR HEMOGLOBIN 32.1 pg (28.0-32.0); MEAN CORPUSCULAR VOLUME 95.2 fL (81.0-99.0); MEAN PLATELET VOLUME 8.9 fl (7.4-10.4); MONOCYTES % 14.2 % (2.0-8.0); NEUTROPHILS % 61.9 % (40.0-76.0); PLATELET 99 x1000/uL (130-400); RED BLOOD CELL COUNT 3.19 mill/uL (4.2-5.4); RED CELL DISTRIBUTION WIDTH 16.5 % (11.6-14.6)
[2019-06-08 15:39] LABS: CHLORIDE 108 mEq/L (98-107)
[2019-06-08 15:42] LABS: INR 1.1; PARTIAL THROMBOPLASTIN TIME 28.7 sec (23.4-31.0); PROTHROMBIN TIME 11.4 sec (9.6-11.0)
[2019-06-08] MEDS ORDERED: CLONIDINE 0.2MG TABLET PO ONE (18:45)
[2019-06-08] MEDS ORDERED: ALBUTEROL (0.083%) 2.5MG/3ML NEB HHN ONE (19:00)
[2019-06-08] MEDS ORDERED: SODIUM POLYSTYRENE SULFONATE 15 G/60 ML BOT PO ONE (19:00)
[2019-06-08] MEDS ORDERED: SODIUM BICARBONATE 8.4% 1 MEQ/ML 50ML SYR IV ONE (19:00)
[2019-06-08] MEDS ORDERED: INSULIN REGULAR (HUMULIN R) 300UNITS/3ML IV ONE (19:00)
[2019-06-08] MEDS ORDERED: DEXTROSE 50% WATER 50ML SYRINGE IV ONE (19:00)
[2019-06-08] MEDS ORDERED: GUAIFENESIN 200MG/10ML SUGAR FREE UDC PO PRN (21:15)
[2019-06-08] MEDS ORDERED: MAGNESIUM/ALUMINUM HYDROXIDE/SIMETHICONE 30ML UDC PO PRN (21:15)
[2019-06-08] MEDS ORDERED: ACETAMINOPHEN 650MG SUPP PR PRN (21:15)
[2019-06-08] MEDS ORDERED: DEXTROSE 50% WATER 50ML SYRINGE IV PRN (21:15)
[2019-06-08] MEDS ORDERED: IPRATROPIUM/ALBUTEROL 0.5-3(2.5)MG/3ML NEB HHN PRN (21:15)
[2019-06-08] MEDS ORDERED: DIPHENHYDRAMINE 50MG/ML VIAL IV PRN (21:15)
[2019-06-08] MEDS ORDERED: CLONIDINE 0.1MG TABLET PO PRN (21:15)
[2019-06-08] MEDS ORDERED: ONDANSETRON HCL 4MG/2ML INJ IV PRN (21:15)
[2019-06-08] MEDS ORDERED: DOCUSATE SODIUM 100MG CAPSULE PO PRN (21:15)
[2019-06-08] MEDS ORDERED: ACETAMINOPHEN 650MG/20.3ML UDC GT PRN (21:15)
[2019-06-08 21:49] LABS: BG BASE EXCESS -7.4 mmol/L (-2.0-2.0); BG BILEVEL POS AIRWAY PRESSURE 15/5; BG CARBOXYHEMOGLOBIN 0.2 % (0.5-1.5); BG DEOXYHEMOGLOBIN 0.8 % (0.0-5.0); BG FRACTION INSPIRED OXYGEN 100; BG HCO3 ACT 19.5 mmol/L (22.0-26.0); BG METHEMOGLOBIN 0.3 % (0.0-1.5); BG OXYGEN SATURATION 99.2 % (92.0-98.5); BG OXYHEMOGLOBIN 98.7 % (94.0-97.0); BG PCO2 45.4 mmHg (35.0-45.0); BG PO2 424.1 mmHg (75.0-100.0); BG SAMPLE SITE RIGHT RADIAL; BG VENT MODE MASK - BIPAP; BG VENT RATE 16 set
[2019-06-08 22:00] VITALS: BP 138/89
[2019-06-08] MEDS: SODIUM CHLORIDE 0.9% INJ 3ML FLUSH IVF SCH (22:00)
[2019-06-08] MEDS ORDERED: HYDRALAZINE 20MG/ML VIAL IV PRN (22:30)
[2019-06-09] VITALS (26 sets, daily range): BP systolic 121–174; BP diastolic 46–86
[2019-06-09 02:24] LABS: CREATINE KINASE 228 IU/L (26-192)
[2019-06-09 02:25] LABS: CREATINE KINASE MB FRACTION 4.3 ng/mL (0.5-3.6)
[2019-06-09] MEDS: SODIUM CHLORIDE 0.9% INJ 3ML FLUSH IVF SCH ×3 (05:43→22:00)
[2019-06-09] MEDS: BLOOD SUGAR DIAGNOSTIC STRIP TEST SCH ×4 (05:54→20:47)
[2019-06-09] MEDS: INSULIN LISPRO 100 UNITS/ML SUBCUT SCH ×4 (07:20→20:47)
[2019-06-09 09:03] LABS: HEMATOCRIT. 31.5 % (36.0-48.0); HEMOGLOBIN. 10.4 g/dL (12.0-16.0); MEAN CORPUSCULAR HEMOGLOBIN 31.6 pg (28.0-32.0); MEAN CORPUSCULAR VOLUME 95.8 fL (81.0-99.0); MEAN PLATELET VOLUME 10.1 fl (7.4-10.4); PLATELET 93 x1000/uL (130-400); RED BLOOD CELL COUNT 3.29 mill/uL (4.2-5.4); RED CELL DISTRIBUTION WIDTH 16.7 % (11.6-14.6)
[2019-06-09 09:11] LABS: CHLORIDE 108 mEq/L (98-107)
[2019-06-09 09:18] LABS: LDL CHOLESTEROL 42 mg/dL (5-100)
[2019-06-09 09:19] LABS: CREATINE KINASE 264 IU/L (26-192); HDL CHOLESTEROL 81 mg/dL (40-59)
[2019-06-09 09:22] LABS: CREATINE KINASE MB FRACTION 4.6 ng/mL (0.5-3.6)
[2019-06-09 14:45] LABS: PLATELET ESTIMATE SLIGHTLY DECREASED
[2019-06-10] VITALS (12 sets, daily range): BP systolic 129–162; BP diastolic 38–80
[2019-06-10] MEDS: HYDROCODONE/ACETAMINOPHEN 5/325MG TABLET PO PRN (00:09)
[2019-06-10] MEDS: SODIUM CHLORIDE 0.9% INJ 3ML FLUSH IVF SCH ×3 (06:00→22:00)
[2019-06-10] MEDS: BLOOD SUGAR DIAGNOSTIC STRIP TEST SCH ×4 (06:26→20:39)
[2019-06-10] MEDS: INSULIN LISPRO 100 UNITS/ML SUBCUT SCH ×4 (06:26→20:39)
[2019-06-10 07:00] LABS: HEMATOCRIT. 29.6 % (36.0-48.0); MEAN CORPUSCULAR HEMOGLOBIN 32.3 pg (28.0-32.0); MEAN CORPUSCULAR VOLUME 95.4 fL (81.0-99.0); MEAN PLATELET VOLUME 10.2 fl (7.4-10.4); PLATELET 85 x1000/uL (130-400); RED CELL DISTRIBUTION WIDTH 16.4 % (11.6-14.6)
[2019-06-10 07:32] LABS: CLARITY URINE CLOUDY (CLEAR); COLOR URINE YELLOW (YELLOW); KETONES URINE NEGATIVE (NEGATIVE); LEUKOCYTE ESTERASE URINE TRACE (NEGATIVE); NITRITE URINE NEGATIVE (NEGATIVE); OCCULT BLOOD URINE 2+ (NEGATIVE); PROTEIN URINE 2+ (NEGATIVE); SPECIFIC GRAVITY URINE 1.013 (1.005-1.030); UROBILINOGEN URINE 0.2 E.U./dL (0.2-1.0)
[2019-06-10 07:54] LABS: *AMPHETAMINES SCREEN URINE NEGATIVE (NEGATIVE); *BARBITURATES SCREEN URINE NEGATIVE (NEGATIVE); *BENZODIAZEPINES SCREEN URINE NEGATIVE (NEGATIVE); *COCAINE SCREEN URINE NEGATIVE (NEGATIVE); CANNABINOID URINE SCREEN NEGATIVE (NEGATIVE); METHADONE URINE SCREEN NEGATIVE (NEGATIVE); OPIATES URINE SCREEN NEGATIVE (NEGATIVE); PHENCYCLIDINE URINE SCREEN NEGATIVE (NEGATIVE)
[2019-06-10] MEDS ORDERED: ENOXAPARIN 40MG/0.4ML SYR SUBCUT SCH (09:00)
[2019-06-10 09:50] LABS: PLATELET ESTIMATE DECREASED
[2019-06-10] MEDS ORDERED: PIPERACILLIN/TAZOBACTAM 2.25 G in DEXTROSE 5% WATER 50 ML IV SCH (15:15)
[2019-06-10] MEDS: PIPERACILLIN/TAZOBACTAM 2.25 G in DEXTROSE 5% WATER 50 ML IV SCH (17:25)
[2019-06-11] VITALS (12 sets, daily range): BP systolic 131–153; BP diastolic 51–83
[2019-06-11] MEDS: HYDROCODONE/ACETAMINOPHEN 5/325MG TABLET PO PRN ×2 (00:01→20:18)
[2019-06-11] MEDS: BLOOD SUGAR DIAGNOSTIC STRIP TEST SCH ×4 (06:20→20:34)
[2019-06-11] MEDS: INSULIN LISPRO 100 UNITS/ML SUBCUT SCH ×4 (06:20→20:33)
[2019-06-11] MEDS: SODIUM CHLORIDE 0.9% INJ 3ML FLUSH IVF SCH ×3 (06:20→22:00)
[2019-06-11] MEDS: PIPERACILLIN/TAZOBACTAM 2.25 G in DEXTROSE 5% WATER 50 ML IV SCH ×2 (06:20→17:23)
[2019-06-11 06:42] LABS: HEMATOCRIT. 28.4 % (36.0-48.0); HEMOGLOBIN. 9.6 g/dL (12.0-16.0); MEAN CORPUSCULAR VOLUME 95.3 fL (81.0-99.0); MEAN PLATELET VOLUME 10.8 fl (7.4-10.4); PLATELET 77 x1000/uL (130-400); RED BLOOD CELL COUNT 2.98 mill/uL (4.2-5.4); RED CELL DISTRIBUTION WIDTH 16.5 % (11.6-14.6)
[2019-06-11 09:52] LABS: PLATELET ESTIMATE DECREASED
[2019-06-11] MEDS: FLUTICASONE PROPIONATE 50MCG/SPRAY BOTTLE BOTHNSTRLS SCH (20:18)
[2019-06-11] MEDS ORDERED: LORATADINE 10MG TABLET PO SCH (21:00)
[2019-06-12] VITALS (12 sets, daily range): BP systolic 116–149; BP diastolic 53–98
[2019-06-12] MEDS: SODIUM CHLORIDE 0.9% INJ 3ML FLUSH IVF SCH ×2 (06:00→13:22)
[2019-06-12] MEDS: BLOOD SUGAR DIAGNOSTIC STRIP TEST SCH ×3 (06:28→17:20)
[2019-06-12] MEDS: PIPERACILLIN/TAZOBACTAM 2.25 G in DEXTROSE 5% WATER 50 ML IV SCH (06:28)
[2019-06-12] MEDS: INSULIN LISPRO 100 UNITS/ML SUBCUT SCH ×3 (06:28→17:21)
[2019-06-12 06:56] LABS: HEMATOCRIT. 28.9 % (36.0-48.0); HEMOGLOBIN. 9.7 g/dL (12.0-16.0); MEAN CORPUSCULAR HEMOGLOBIN 31.9 pg (28.0-32.0); MEAN CORPUSCULAR VOLUME 95.2 fL (81.0-99.0); MEAN PLATELET VOLUME 10.8 fl (7.4-10.4); PLATELET 84 x1000/uL (130-400); RED BLOOD CELL COUNT 3.04 mill/uL (4.2-5.4); RED CELL DISTRIBUTION WIDTH 16.1 % (11.6-14.6)
[2019-06-12] MEDS: FLUTICASONE PROPIONATE 50MCG/SPRAY BOTTLE BOTHNSTRLS SCH (08:26)
[2019-06-12 09:05] LABS: PLATELET ESTIMATE DECREASED
[2019-06-12] MEDS: HYDROCODONE/ACETAMINOPHEN 5/325MG TABLET PO PRN (11:04)
== END 2019-06-12 21:13 | disposition home health service (06) | DRG 194 ==
LOC: ER 15:29 → 3WST 18:58 → EDBEDREQSVC 20:19 → EDBEDREQTM 20:19 → EDBEDREQ 20:21 → ENRESERV 20:32 → 3WST 06-12 14:50
PROVIDERS: ADMIT Family Medicine; ATTEND Family Medicine
PROC: 5A1D70Z Performance of Urinary Filtration, Intermittent, Less than 6 Hours Per Day (ICD-10-PCS; principal; 2019-06-08)
PROC: 5A09357 Assistance with Respiratory Ventilation, Less than 24 Consecutive Hours, Continuous Positive Airway Pressure (ICD-10-PCS; 2019-06-08)
PROC: 5A1D70Z Performance of Urinary Filtration, Intermittent, Less than 6 Hours Per Day (ICD-10-PCS; 2019-06-09)
PROC: 5A1D70Z Performance of Urinary Filtration, Intermittent, Less than 6 Hours Per Day (ICD-10-PCS; 2019-06-11)
DX: I13.2 Hypertensive heart and chronic kidney disease with heart failure and with stage 5 chronic kidney disease, or end stage renal disease (principal); J96.01 Acute respiratory failure with hypoxia; D61.818 Other pancytopenia; J18.1 Lobar pneumonia, unspecified organism; E11.22 Type 2 diabetes mellitus with diabetic chronic kidney disease; D69.6 Thrombocytopenia, unspecified; E87.5 Hyperkalemia; E11.40 Type 2 diabetes mellitus with diabetic neuropathy, unspecified; G89.29 Other chronic pain; E78.5 Hyperlipidemia, unspecified; I07.1 Rheumatic tricuspid insufficiency; R59.0 Localized enlarged lymph nodes; J00 Acute nasopharyngitis [common cold]; M54.5 Low back pain; N18.6 End stage renal disease; I50.33 Acute on chronic diastolic (congestive) heart failure; E66.9 Obesity, unspecified; Z99.2 Dependence on renal dialysis; Z91.19 Patient's noncompliance with other medical treatment and regimen; Z68.33 Body mass index [BMI] 33.0-33.9, adult; Z88.6 Allergy status to analgesic agent; Z88.1 Allergy status to other antibiotic agents; Z79.899 Other long term (current) drug therapy; Z90.49 Acquired absence of other specified parts of digestive tract
CPT/HCPCS: 36415; 36600; 71045; 71250; 80048; 80061; 80305; 81003; 82375; 82550; 82553; 82805; 82962; 83880; 84484; 93005; 94618; 94660; 96374; 99291; J0360; J1815; J2543; J3490; J7060; J7611

== ENCOUNTER 2019-07-27 12:04 | Inpatient (IN) | payer MEDICARE, OTHER ==
[~2019-07-27] VITALS: Ht 160 cm; Wt 94.4 kg
[2019-07-27 13:46] LABS: CHLORIDE 104 mEq/L (98-107); INR 1.1; PROTHROMBIN TIME 11.4 sec (9.6-11.0)
[2019-07-27 13:58] LABS: CLARITY URINE CLEAR (CLEAR); COLOR URINE YELLOW (YELLOW); KETONES URINE NEGATIVE (NEGATIVE); LEUKOCYTE ESTERASE URINE NEGATIVE (NEGATIVE); NITRITE URINE NEGATIVE (NEGATIVE); OCCULT BLOOD URINE 1+ (NEGATIVE); PROTEIN URINE 3+ (NEGATIVE); SPECIFIC GRAVITY URINE 1.012 (1.005-1.030); UROBILINOGEN URINE 0.2 E.U./dL (0.2-1.0)
[2019-07-27 13:59] LABS: HEMATOCRIT. 35.2 % (36.0-48.0); HEMOGLOBIN. 11.7 g/dL (12.0-16.0); MEAN CORPUSCULAR HEMOGLOBIN 31.5 pg (28.0-32.0); MEAN CORPUSCULAR VOLUME 94.8 fL (81.0-99.0); MEAN PLATELET VOLUME 9.8 fl (7.4-10.4); PLATELET 89 x1000/uL (130-400); RED BLOOD CELL COUNT 3.71 mill/uL (4.2-5.4); RED CELL DISTRIBUTION WIDTH 14.1 % (11.6-14.6)
[2019-07-27] MEDS: ALBUTEROL (0.083%) 2.5MG/3ML NEB HHN SCH ×3 (14:00→15:00)
[2019-07-27] MEDS ORDERED: SODIUM BICARBONATE 8.4% 1 MEQ/ML 50ML SYR IV ONE (14:00)
[2019-07-27] MEDS ORDERED: INSULIN REGULAR (HUMULIN R) 300UNITS/3ML IV ONE (14:00)
[2019-07-27] MEDS ORDERED: DEXTROSE 50% WATER 50ML SYRINGE IV ONE (14:00)
[2019-07-27] MEDS ORDERED: SODIUM POLYSTYRENE SULFONATE 15 G/60 ML BOT PO ONE (14:00)
[2019-07-27] MEDS ORDERED: GUAIFENESIN 200MG/10ML SUGAR FREE UDC PO PRN (14:30)
[2019-07-27] MEDS ORDERED: LORAZEPAM 0.5MG TABLET PO PRN (14:30)
[2019-07-27] MEDS ORDERED: CLONIDINE 0.1MG TABLET PO PRN (14:30)
[2019-07-27] MEDS ORDERED: DOCUSATE SODIUM 100MG CAPSULE PO PRN (14:30)
[2019-07-27] MEDS ORDERED: MAGNESIUM/ALUMINUM HYDROXIDE/SIMETHICONE 30ML UDC PO PRN (14:30)
[2019-07-27] MEDS ORDERED: ENOXAPARIN 40MG/0.4ML SYR SUBCUT SCH (14:30)
[2019-07-27] MEDS ORDERED: ONDANSETRON HCL 4MG/2ML INJ IV PRN (14:30)
[2019-07-27] MEDS ORDERED: IPRATROPIUM/ALBUTEROL 0.5-3(2.5)MG/3ML NEB NEB PRN (14:30)
[2019-07-27] MEDS ORDERED: NITROGLYCERIN 0.4MG TABLET SL SL PRN (14:30)
[2019-07-27 14:32] LABS: PLATELET ESTIMATE DECREASED
[2019-07-27] MEDS ORDERED: DEXTROSE 50% WATER 50ML SYRINGE IV PRN (14:45)
[2019-07-27] MEDS ORDERED: AMLODIPINE 10MG TABLET PO SCH (15:30)
[2019-07-27] MEDS ORDERED: ZOLPIDEM TARTRATE 5MG TABLET PO PRN (16:02)
[2019-07-27 17:00] VITALS: BP 168/98
[2019-07-27] MEDS: BLOOD SUGAR DIAGNOSTIC STRIP TEST SCH ×2 (17:40→21:00)
[2019-07-27] MEDS ORDERED: SODIUM POLYSTYRENE SULFONATE 15 G/60 ML BOT PO NR (18:00)
[2019-07-27] MEDS: INSULIN LISPRO 100 UNITS/ML SUBCUT SCH ×2 (18:10→21:00)
[2019-07-27] MEDS: SEVELAMER CARBONATE 800 MG TABLET PO SCH (18:56)
[2019-07-27 20:00] VITALS: BP 159/63
[2019-07-27] MEDS: TRAMADOL 50MG TABLET PO PRN (21:40)
[2019-07-27] MEDS ORDERED: ACETAMINOPHEN 325MG TABLET PO PRN (22:04)
[2019-07-28] VITALS: BP 178/85
[2019-07-28] MEDS: HYDRALAZINE HCL 50MG TABLET PO SCH ×4 (00:10→22:42)
[2019-07-28] MEDS: FAMOTIDINE 20MG TABLET PO SCH ×3 (00:11→22:42)
[2019-07-28 01:14] LABS: CREATINE KINASE MB FRACTION 2.2 ng/mL (0.5-3.6)
[2019-07-28 04:00] VITALS: BP 147/65
[2019-07-28] MEDS: BLOOD SUGAR DIAGNOSTIC STRIP TEST SCH ×4 (07:03→21:00)
[2019-07-28] MEDS: TRAMADOL 50MG TABLET PO PRN ×2 (07:03→22:41)
[2019-07-28 07:58] LABS: CHLORIDE 99 mEq/L (98-107)
[2019-07-28 08:06] LABS: CREATINE KINASE 158 IU/L (26-192)
[2019-07-28 08:07] LABS: HEMATOCRIT. 32.4 % (36.0-48.0); HEMOGLOBIN. 10.8 g/dL (12.0-16.0); MEAN CORPUSCULAR HEMOGLOBIN 31.4 pg (28.0-32.0); MEAN CORPUSCULAR VOLUME 94.3 fL (81.0-99.0); MEAN PLATELET VOLUME 10.2 fl (7.4-10.4); PLATELET 87 x1000/uL (130-400); RED BLOOD CELL COUNT 3.43 mill/uL (4.2-5.4)
[2019-07-28 08:09] LABS: CREATINE KINASE MB FRACTION 2.4 ng/mL (0.5-3.6)
[2019-07-28] MEDS: INSULIN LISPRO 100 UNITS/ML SUBCUT SCH ×4 (08:10→21:00)
[2019-07-28 08:26] VITALS: BP 154/70
[2019-07-28] MEDS ORDERED: ASPIRIN 325MG EC TABLET PO SCH (09:00)
[2019-07-28] MEDS: SEVELAMER CARBONATE 800 MG TABLET PO SCH ×2 (09:12→13:42)
[2019-07-28] MEDS: FOLIC ACID/VITAMIN B COMP W-C TABLET PO SCH (09:12)
[2019-07-28] MEDS: AMLODIPINE 10MG TABLET PO SCH (09:12)
[2019-07-28 10:28] LABS: *AMPHETAMINES SCREEN URINE NEGATIVE (NEGATIVE); *BARBITURATES SCREEN URINE NEGATIVE (NEGATIVE); *BENZODIAZEPINES SCREEN URINE NEGATIVE (NEGATIVE)
[2019-07-28 10:29] LABS: CANNABINOID URINE SCREEN NEGATIVE (NEGATIVE); METHADONE URINE SCREEN NEGATIVE (NEGATIVE); OPIATES URINE SCREEN NEGATIVE (NEGATIVE); PHENCYCLIDINE URINE SCREEN NEGATIVE (NEGATIVE)
[2019-07-28 10:30] LABS: *COCAINE SCREEN URINE NEGATIVE (NEGATIVE)
[2019-07-28 11:58] VITALS: BP 137/64
[2019-07-28 13:43] LABS: NUCLEATED RED BLOOD CELLS 1 /100 WBC; PLATELET ESTIMATE DECREASED
[2019-07-28 15:17] VITALS: BP 107/47
[2019-07-28 20:00] VITALS: BP 105/44
[2019-07-29] VITALS: BP 126/72
[2019-07-29 04:00] VITALS: BP 123/51
[2019-07-29] MEDS: HYDRALAZINE HCL 50MG TABLET PO SCH ×3 (06:32→21:12)
[2019-07-29] MEDS: BLOOD SUGAR DIAGNOSTIC STRIP TEST SCH ×4 (06:32→21:00)
[2019-07-29 07:24] LABS: HEMATOCRIT. 34.8 % (36.0-48.0); HEMOGLOBIN. 11.6 g/dL (12.0-16.0); MEAN CORPUSCULAR HEMOGLOBIN 31.2 pg (28.0-32.0); MEAN CORPUSCULAR VOLUME 93.9 fL (81.0-99.0); MEAN PLATELET VOLUME 10.1 fl (7.4-10.4); PLATELET 111 x1000/uL (130-400); RED BLOOD CELL COUNT 3.71 mill/uL (4.2-5.4); RED CELL DISTRIBUTION WIDTH 13.7 % (11.6-14.6)
[2019-07-29 08:00] VITALS: BP 118/40
[2019-07-29] MEDS: INSULIN LISPRO 100 UNITS/ML SUBCUT SCH ×4 (08:10→21:24)
[2019-07-29] MEDS: FOLIC ACID/VITAMIN B COMP W-C TABLET PO SCH (08:22)
[2019-07-29] MEDS: SEVELAMER CARBONATE 800 MG TABLET PO SCH ×4 (08:23→19:17)
[2019-07-29] MEDS: AMLODIPINE 10MG TABLET PO SCH (08:25)
[2019-07-29] MEDS: FAMOTIDINE 20MG TABLET PO SCH (09:00)
[2019-07-29 12:00] VITALS: BP 128/61
[2019-07-29 16:00] VITALS: BP 139/64
[2019-07-29 17:24] LABS: PLATELET ESTIMATE DECREASED
[2019-07-29 20:00] VITALS: BP 99/43
[2019-07-30] VITALS: BP 119/42
[2019-07-30 04:00] VITALS: BP 137/62
[2019-07-30] MEDS: HYDRALAZINE HCL 50MG TABLET PO SCH ×2 (05:49→14:00)
[2019-07-30] MEDS: TRAMADOL 50MG TABLET PO PRN (05:50)
[2019-07-30] MEDS: INSULIN LISPRO 100 UNITS/ML SUBCUT SCH ×2 (06:47→14:14)
[2019-07-30] MEDS: BLOOD SUGAR DIAGNOSTIC STRIP TEST SCH ×2 (06:47→12:00)
[2019-07-30 08:00] VITALS: BP 139/55
[2019-07-30] MEDS ORDERED: FAMOTIDINE 20MG TABLET PO SCH (09:00)
[2019-07-30] MEDS: SEVELAMER CARBONATE 800 MG TABLET PO SCH ×2 (09:38→14:17)
[2019-07-30] MEDS: FOLIC ACID/VITAMIN B COMP W-C TABLET PO SCH (09:38)
[2019-07-30] MEDS: AMLODIPINE 10MG TABLET PO SCH (09:40)
[2019-07-30 12:00] VITALS: BP 108/60
[2019-07-30 16:00] VITALS: BP 103/61
[2019-07-30 17:04] VITALS: BP 103/61
== END 2019-07-30 19:33 | disposition home or self-care (01) | DRG 133 ==
LOC: ER 12:04 → 7WST 14:01 → EDBEDREQ 14:06 → SUPCPDRO 14:15 → ENRESERV 14:49
PROVIDERS: ADMIT Internal Medicine; ATTEND Internal Medicine
PROC: 5A1D70Z Performance of Urinary Filtration, Intermittent, Less than 6 Hours Per Day (ICD-10-PCS; 2019-07-27)
PROC: 5A1D70Z Performance of Urinary Filtration, Intermittent, Less than 6 Hours Per Day (ICD-10-PCS; principal; 2019-07-28)
DX: J96.00 Acute respiratory failure, unspecified whether with hypoxia or hypercapnia (principal); I13.2 Hypertensive heart and chronic kidney disease with heart failure and with stage 5 chronic kidney disease, or end stage renal disease; E11.22 Type 2 diabetes mellitus with diabetic chronic kidney disease; N18.6 End stage renal disease; D69.6 Thrombocytopenia, unspecified; E87.5 Hyperkalemia; Z99.81 Dependence on supplemental oxygen; I50.30 Unspecified diastolic (congestive) heart failure; Z99.2 Dependence on renal dialysis; D63.8 Anemia in other chronic diseases classified elsewhere; I16.0 Hypertensive urgency; Z79.4 Long term (current) use of insulin; Z91.15 Patient's noncompliance with renal dialysis; E78.00 Pure hypercholesterolemia, unspecified; Z79.899 Other long term (current) drug therapy; Z91.11 Patient's noncompliance with dietary regimen; Z91.14 Patient's other noncompliance with medication regimen; Z88.1 Allergy status to other antibiotic agents; Z88.4 Allergy status to anesthetic agent
CPT/HCPCS: 36415; 71045; 80048; 80061; 80305; 80320; 81003; 82550; 82553; 82962; 83036; 83605; 83880; 84484; 93005; 93306; 93970; 94640; 96374; 96375; 99285; J1815; J3490; J7611; G0480

== ENCOUNTER 2020-01-01 11:35 | Inpatient (IN) | payer MEDICAID, MEDICARE, OTHER ==
[~2020-01-01] VITALS: Ht 167.6 cm; Wt 89.4 kg
[~2020-01-01 11:35] MED LIST changes: +SIMV-43 PO; -SIMV20TA6 PO
[2020-01-01 12:43] LABS: HEMATOCRIT. 31.6 % (36.0-48.0); HEMOGLOBIN. 10.7 g/dL (12.0-16.0); MEAN CORPUSCULAR HEMOGLOBIN 31.7 pg (28.0-32.0); MEAN CORPUSCULAR VOLUME 93.8 fL (81.0-99.0); MEAN PLATELET VOLUME 9.1 fl (7.4-10.4); PLATELET 97 x1000/uL (130-400); RED BLOOD CELL COUNT 3.36 mill/uL (4.2-5.4); RED CELL DISTRIBUTION WIDTH 14.3 % (11.6-14.6)
[2020-01-01 12:46] LABS: CHLORIDE 103 mEq/L (98-107)
[2020-01-01] MEDS ORDERED: FUROSEMIDE 100MG/10ML VIAL IV STA (12:59)
[2020-01-01] MEDS ORDERED: CALCIUM CHLORIDE 1GM/10ML SYR IV ONE (13:00)
[2020-01-01] MEDS ORDERED: ALBUTEROL (0.083%) 2.5MG/3ML NEB HHN ONE (13:00)
[2020-01-01] MEDS ORDERED: DEXTROSE 50% WATER 50ML SYRINGE IV ONE (13:00)
[2020-01-01] MEDS ORDERED: SODIUM BICARBONATE 8.4% 1 MEQ/ML 50ML SYR IV ONE (13:00)
[2020-01-01] MEDS ORDERED: INSULIN REGULAR (HUMULIN R) 300UNITS/3ML IV ONE (13:00)
[2020-01-01] MEDS ORDERED: SODIUM POLYSTYRENE SULFONATE 15 G/60 ML BOT PO ONE (13:00)
[2020-01-01] MEDS ORDERED: INSULIN REGULAR (HUMULIN R) UD 100 UNITS/ML SYR IV ONE (14:00)
[2020-01-01 14:14] LABS: PLATELET ESTIMATE DECREASED
[2020-01-01 15:15] VITALS: BP 143/123
[2020-01-01] MEDS ORDERED: IPRATROPIUM/ALBUTEROL 0.5-3(2.5)MG/3ML NEB HHN PRN (16:30)
[2020-01-01] MEDS ORDERED: CLONIDINE 0.1MG TABLET PO PRN (16:30)
[2020-01-01] MEDS ORDERED: ONDANSETRON HCL 4MG/2ML INJ IV PRN (16:30)
[2020-01-01] MEDS ORDERED: ACETAMINOPHEN 325MG TABLET PO PRN (16:30)
[2020-01-01] MEDS ORDERED: DEXTROSE 50% WATER 50ML SYRINGE IV PRN (17:15)
[2020-01-01] MEDS: BLOOD SUGAR DIAGNOSTIC STRIP TEST SCH ×2 (18:06→20:36)
[2020-01-01] MEDS: INSULIN LISPRO 100 UNITS/ML SUBCUT SCH ×2 (18:06→20:36)
[2020-01-01 20:00] VITALS: BP 141/66
[2020-01-02] VITALS: BP 123/68
[2020-01-02 04:00] VITALS: BP 129/65
[2020-01-02] MEDS: BLOOD SUGAR DIAGNOSTIC STRIP TEST SCH ×4 (06:09→21:16)
[2020-01-02] MEDS: INSULIN LISPRO 100 UNITS/ML SUBCUT SCH ×4 (06:09→20:43)
[2020-01-02 06:36] LABS: HEMATOCRIT. 28.8 % (36.0-48.0); HEMOGLOBIN. 9.8 g/dL (12.0-16.0); MEAN CORPUSCULAR HEMOGLOBIN 31.3 pg (28.0-32.0); MEAN CORPUSCULAR VOLUME 92.3 fL (81.0-99.0); MEAN PLATELET VOLUME 9.6 fl (7.4-10.4); PLATELET 81 x1000/uL (130-400); RED BLOOD CELL COUNT 3.12 mill/uL (4.2-5.4); RED CELL DISTRIBUTION WIDTH 14.5 % (11.6-14.6)
[2020-01-02 06:38] LABS: CHLORIDE 102 mEq/L (98-107)
[2020-01-02 06:48] LABS: LDL CHOLESTEROL 28 mg/dL (5-100)
[2020-01-02 06:50] LABS: HDL CHOLESTEROL 81 mg/dL (40-59)
[2020-01-02 09:45] VITALS: BP 130/56
[2020-01-02 12:00] VITALS: BP 112/52
[2020-01-02 14:11] LABS: PLATELET ESTIMATE DECREASED
[2020-01-02 16:00] VITALS: BP 114/57
[2020-01-02] MEDS: SEVELAMER CARBONATE 800 MG TABLET PO SCH (16:26)
[2020-01-02] MEDS: GABAPENTIN 100MG CAPSULE PO SCH ×2 (16:26→23:03)
[2020-01-02] MEDS: LOSARTAN POTASSIUM 50 MG TABLET PO SCH (16:27)
[2020-01-02] MEDS: AMLODIPINE 10MG TABLET PO SCH (16:27)
[2020-01-02 20:00] VITALS: BP 139/63
[2020-01-02] MEDS: ATORVASTATIN CALCIUM 20MG TABLET PO SCH (23:03)
[2020-01-03] VITALS: BP_SYST 116; BP_SYST 118; BP_DIAS 45; BP_DIAS 46
[2020-01-03 04:00] VITALS: BP 101/45
[2020-01-03] MEDS: GABAPENTIN 100MG CAPSULE PO SCH ×3 (05:48→21:04)
[2020-01-03 06:35] LABS: HEMATOCRIT. 29.7 % (36.0-48.0); HEMOGLOBIN. 9.9 g/dL (12.0-16.0); MEAN CORPUSCULAR HEMOGLOBIN 31.2 pg (28.0-32.0); MEAN CORPUSCULAR VOLUME 93.1 fL (81.0-99.0); MEAN PLATELET VOLUME 9.7 fl (7.4-10.4); PLATELET 95 x1000/uL (130-400); RED BLOOD CELL COUNT 3.18 mill/uL (4.2-5.4); RED CELL DISTRIBUTION WIDTH 14.1 % (11.6-14.6)
[2020-01-03] MEDS: BLOOD SUGAR DIAGNOSTIC STRIP TEST SCH ×4 (06:54→21:05)
[2020-01-03 08:00] VITALS: BP 121/48
[2020-01-03] MEDS: LOSARTAN POTASSIUM 50 MG TABLET PO SCH (09:00)
[2020-01-03] MEDS: AMLODIPINE 10MG TABLET PO SCH (09:00)
[2020-01-03] MEDS: INSULIN LISPRO 100 UNITS/ML SUBCUT SCH ×4 (10:05→21:05)
[2020-01-03] MEDS: SEVELAMER CARBONATE 800 MG TABLET PO SCH (10:07)
[2020-01-03 11:41] LABS: PLATELET ESTIMATE DECREASED
[2020-01-03 12:00] VITALS: BP 119/49
[2020-01-03] MEDS: HYDROCODONE/ACETAMINOPHEN 5/325MG TABLET PO PRN ×3 (13:30→23:56)
[2020-01-03 16:00] VITALS: BP 154/42
[2020-01-03 20:00] VITALS: BP_SYST 116; BP_DIAS 46; BP_DIAS 56
[2020-01-03] MEDS: ATORVASTATIN CALCIUM 20MG TABLET PO SCH (21:04)
[2020-01-04] VITALS: BP 143/53
[2020-01-04 04:00] VITALS: BP 104/78
[2020-01-04] MEDS: GABAPENTIN 100MG CAPSULE PO SCH (05:18)
[2020-01-04] MEDS: HYDROCODONE/ACETAMINOPHEN 5/325MG TABLET PO PRN ×2 (05:19→11:45)
[2020-01-04 06:40] LABS: HEMATOCRIT. 30.1 % (36.0-48.0); HEMOGLOBIN. 10.1 g/dL (12.0-16.0); MEAN CORPUSCULAR HEMOGLOBIN 31.1 pg (28.0-32.0); MEAN CORPUSCULAR VOLUME 92.3 fL (81.0-99.0); MEAN PLATELET VOLUME 9.5 fl (7.4-10.4); PLATELET 99 x1000/uL (130-400); RED BLOOD CELL COUNT 3.26 mill/uL (4.2-5.4); RED CELL DISTRIBUTION WIDTH 14.7 % (11.6-14.6)
[2020-01-04] MEDS: BLOOD SUGAR DIAGNOSTIC STRIP TEST SCH ×2 (07:40→12:23)
[2020-01-04 08:00] VITALS: BP 105/55
[2020-01-04] MEDS: LOSARTAN POTASSIUM 50 MG TABLET PO SCH (08:51)
[2020-01-04] MEDS: SEVELAMER CARBONATE 800 MG TABLET PO SCH (08:52)
[2020-01-04] MEDS: INSULIN LISPRO 100 UNITS/ML SUBCUT SCH ×2 (08:53→13:10)
[2020-01-04] MEDS: AMLODIPINE 10MG TABLET PO SCH (09:00)
[2020-01-04] MEDS ORDERED: HYDR-4001 MT (11:42)
[2020-01-04 12:00] VITALS: BP 127/47
[2020-01-04 12:50] VITALS: BP 126/45
[2020-01-04 22:18] LABS: PLATELET ESTIMATE DECREASED
== END 2020-01-04 16:15 | disposition home or self-care (01) | DRG 425 ==
LOC: ER 11:51 → EDBEDREQTM 13:18 → EDBEDREQ 13:18 → EDBEDREQTM 13:21 → ENRESERV 13:52 → EDBEDREQ 14:10 → EDBEDREQTM 14:10 → 7WST 14:47
PROVIDERS: ADMIT Internal Medicine; ATTEND Internal Medicine
PROC: 5A1D70Z Performance of Urinary Filtration, Intermittent, Less than 6 Hours Per Day (ICD-10-PCS; principal; 2020-01-01)
PROC: 5A1D70Z Performance of Urinary Filtration, Intermittent, Less than 6 Hours Per Day (ICD-10-PCS; 2020-01-02)
PROC: 5A1D70Z Performance of Urinary Filtration, Intermittent, Less than 6 Hours Per Day (ICD-10-PCS; 2020-01-03)
DX: E87.5 Hyperkalemia (principal); I13.2 Hypertensive heart and chronic kidney disease with heart failure and with stage 5 chronic kidney disease, or end stage renal disease; E11.22 Type 2 diabetes mellitus with diabetic chronic kidney disease; D69.6 Thrombocytopenia, unspecified; N18.6 End stage renal disease; E87.70 Fluid overload, unspecified; D64.9 Anemia, unspecified; E78.00 Pure hypercholesterolemia, unspecified; R94.31 Abnormal electrocardiogram [ECG] [EKG]; D63.8 Anemia in other chronic diseases classified elsewhere; R74.0 Nonspecific elevation of levels of transaminase and lactic acid dehydrogenase [LDH]; Z91.15 Patient's noncompliance with renal dialysis; Z99.2 Dependence on renal dialysis; Z91.19 Patient's noncompliance with other medical treatment and regimen; Z88.6 Allergy status to analgesic agent; Z88.1 Allergy status to other antibiotic agents; Z79.899 Other long term (current) drug therapy; Z79.84 Long term (current) use of oral hypoglycemic drugs; I50.33 Acute on chronic diastolic (congestive) heart failure
CPT/HCPCS: 36415; 71045; 80048; 80053; 80061; 82962; 83036; 83735; 83880; 84100; 84443; 84484; 85025; 93005; 93970; 99291; J1815; J1940; J3490

== ENCOUNTER 2020-03-10 20:36 | Inpatient (IN) | payer MEDICARE, MEDICAID ==
[~2020-03-10] VITALS: Ht 160 cm; Wt 78.9 kg
[~2020-03-10 20:36] MED LIST changes: +HYDR-4001 MT
[2020-03-10 22:46] LABS: BASOPHILS % 0.7 % (0.0-2.0); EOSINOPHILS % 0.2 % (0.0-5.0); HEMATOCRIT. 34.9 % (36.0-48.0); HEMOGLOBIN. 11.8 g/dL (12.0-16.0); LYMPHOCYTES % 22.7 % (20.0-50.0); MEAN CORPUSCULAR VOLUME 91.8 fL (81.0-99.0); MEAN PLATELET VOLUME 10.1 fl (7.4-10.4); MONOCYTES % 14.3 % (2.0-8.0); NEUTROPHILS % 62.1 % (40.0-76.0); PLATELET 114 x1000/uL (130-400); RED CELL DISTRIBUTION WIDTH 14.2 % (11.6-14.6)
[2020-03-10 22:49] LABS: CHLORIDE 98 mEq/L (98-107)
[2020-03-10 22:51] LABS: PROTHROMBIN TIME 11.2 sec (9.6-11.0)
[2020-03-10] MEDS ORDERED: DEXTROSE 50% WATER 50ML SYRINGE IV NR (23:00)
[2020-03-10] MEDS ORDERED: CALCIUM CHLORIDE 1GM/10ML SYR IV NR (23:00)
[2020-03-10] MEDS ORDERED: INSULIN REGULAR (HUMULIN R) 300UNITS/3ML IV NR (23:00)
[2020-03-10] MEDS ORDERED: SODIUM BICARBONATE 8.4% 1 MEQ/ML 50ML SYR IV NR (23:00)
[2020-03-11] MEDS ORDERED: IPRATROPIUM/ALBUTEROL 0.5-3(2.5)MG/3ML NEB HHN PRN (10:00)
[2020-03-11] MEDS ORDERED: ACETAMINOPHEN 325MG TABLET PO PRN (10:00)
[2020-03-11] MEDS ORDERED: ONDANSETRON HCL 4MG/2ML INJ IV PRN (10:00)
[2020-03-11] MEDS ORDERED: CEFTRIAXONE 1 G PREMIX 50 ML IV SCH (11:00)
[2020-03-11] MEDS: AZITHROMYCIN 500 MG TABLET PO SCH (11:11)
[2020-03-11] MEDS: ENOXAPARIN 30MG/0.3ML SYR SUBCUT SCH (11:13)
[2020-03-11 16:14] VITALS: BP 148/48
[2020-03-11 17:39] VITALS: BP 140/49
[2020-03-11 20:00] VITALS: BP 98/73
[2020-03-11] MEDS ORDERED: DEXTROSE 50% WATER 50ML SYRINGE IV PRN (20:15)
[2020-03-11] MEDS ORDERED: DIPHENHYDRAMINE 50MG/ML VIAL IV PRN (20:15)
[2020-03-11] MEDS ORDERED: HYDROCODONE/ACETAMINOPHEN 5/325MG TABLET PO PRN (20:15)
[2020-03-11] MEDS: INSULIN LISPRO 100 UNITS/ML SUBCUT SCH (20:47)
[2020-03-11] MEDS: BLOOD SUGAR DIAGNOSTIC STRIP TEST SCH (20:47)
[2020-03-11 22:00] VITALS: BP 163/101
[2020-03-12] VITALS (11 sets, daily range): BP systolic 86–150; BP diastolic 25–98
[2020-03-12] MEDS: BLOOD SUGAR DIAGNOSTIC STRIP TEST SCH ×4 (06:18→21:05)
[2020-03-12 07:06] LABS: BASOPHILS % 0.6 % (0.0-2.0); EOSINOPHILS % 0.6 % (0.0-5.0); HEMATOCRIT. 35.4 % (36.0-48.0); HEMOGLOBIN. 11.8 g/dL (12.0-16.0); LYMPHOCYTES % 19.6 % (20.0-50.0); MEAN CORPUSCULAR HEMOGLOBIN 31.1 pg (28.0-32.0); MEAN CORPUSCULAR VOLUME 93.3 fL (81.0-99.0); MEAN PLATELET VOLUME 9.8 fl (7.4-10.4); MONOCYTES % 14.1 % (2.0-8.0); NEUTROPHILS % 65.1 % (40.0-76.0); PLATELET 101 x1000/uL (130-400); RED CELL DISTRIBUTION WIDTH 14.6 % (11.6-14.6)
[2020-03-12] MEDS: INSULIN LISPRO 100 UNITS/ML SUBCUT SCH ×4 (07:19→21:00)
[2020-03-12] MEDS: ENOXAPARIN 30MG/0.3ML SYR SUBCUT SCH (08:57)
[2020-03-12] MEDS: AZITHROMYCIN 500 MG TABLET PO SCH (08:57)
[2020-03-13] VITALS (13 sets, daily range): BP systolic 91–179; BP diastolic 43–75
[2020-03-13] MEDS: CEFTRIAXONE 1 G PREMIX 50 ML IV SCH ×2 (05:00→15:57)
[2020-03-13] MEDS: BLOOD SUGAR DIAGNOSTIC STRIP TEST SCH ×4 (06:56→21:29)
[2020-03-13] MEDS: INSULIN LISPRO 100 UNITS/ML SUBCUT SCH ×4 (07:20→21:00)
[2020-03-13 07:24] LABS: HEMATOCRIT. 35.7 % (36.0-48.0); HEMOGLOBIN. 11.9 g/dL (12.0-16.0); MEAN CORPUSCULAR HEMOGLOBIN 30.5 pg (28.0-32.0); MEAN CORPUSCULAR VOLUME 91.6 fL (81.0-99.0); MEAN PLATELET VOLUME 10.4 fl (7.4-10.4); PLATELET 115 x1000/uL (130-400); RED CELL DISTRIBUTION WIDTH 14.5 % (11.6-14.6)
[2020-03-13] MEDS: AZITHROMYCIN 500 MG TABLET PO SCH (08:06)
[2020-03-13] MEDS: ENOXAPARIN 30MG/0.3ML SYR SUBCUT SCH (08:06)
[2020-03-13 09:52] LABS: NUCLEATED RED BLOOD CELLS 1 /100 WBC
[2020-03-13 09:53] LABS: PLATELET ESTIMATE SLIGHTLY DECREASED
[2020-03-14] VITALS (13 sets, daily range): BP systolic 110–164; BP diastolic 44–81
[2020-03-14] MEDS: BLOOD SUGAR DIAGNOSTIC STRIP TEST SCH ×4 (06:40→21:00)
[2020-03-14] MEDS: INSULIN LISPRO 100 UNITS/ML SUBCUT SCH ×4 (07:07→21:00)
[2020-03-14 07:28] LABS: BASOPHILS % 0.8 % (0.0-2.0); EOSINOPHILS % 0.9 % (0.0-5.0); HEMATOCRIT. 35.3 % (36.0-48.0); HEMOGLOBIN. 11.8 g/dL (12.0-16.0); LYMPHOCYTES % 15.4 % (20.0-50.0); MEAN CORPUSCULAR HEMOGLOBIN 30.6 pg (28.0-32.0); MEAN CORPUSCULAR VOLUME 91.8 fL (81.0-99.0); MONOCYTES % 12.4 % (2.0-8.0); NEUTROPHILS % 70.5 % (40.0-76.0); PLATELET 138 x1000/uL (130-400); RED BLOOD CELL COUNT 3.85 mill/uL (4.2-5.4); RED CELL DISTRIBUTION WIDTH 14.3 % (11.6-14.6)
[2020-03-14] MEDS: AZITHROMYCIN 500 MG TABLET PO SCH (08:46)
[2020-03-14] MEDS: ENOXAPARIN 30MG/0.3ML SYR SUBCUT SCH (08:47)
[2020-03-14 09:24] LABS: BG BASE EXCESS -1.8 mmol/L (-2.0-2.0); BG CARBOXYHEMOGLOBIN 0.7 % (0.5-1.5); BG DEOXYHEMOGLOBIN 33.6 % (0.0-5.0); BG FRACTION INSPIRED OXYGEN 21; BG HCO3 ACT 23.6 mmol/L (22.0-26.0); BG OXYGEN SATURATION 66.2 % (92.0-98.5); BG OXYHEMOGLOBIN 65.7 % (94.0-97.0); BG PH 7.358 (7.350-7.450); BG PO2 36.1 mmHg (75.0-100.0); BG SAMPLE SITE RIGHT RADIAL; BG TOTAL HEMOGLOBIN 12.5 g/dL (12.0-18.0); BG VENT MODE ROOM AIR
[2020-03-14] MEDS: CEFTRIAXONE 1 G PREMIX 50 ML IV SCH (16:24)
[2020-03-15] VITALS: BP 126/64
[2020-03-15 04:00] VITALS: BP 111/71
[2020-03-15 06:11] LABS: BG BASE EXCESS 2.2 mmol/L (-2.0-2.0); BG CARBOXYHEMOGLOBIN 0.5 % (0.5-1.5); BG DEOXYHEMOGLOBIN 31.2 % (0.0-5.0); BG FRACTION INSPIRED OXYGEN 21; BG HCO3 ACT 27.7 mmol/L (22.0-26.0); BG METHEMOGLOBIN 0.2 % (0.0-1.5); BG OXYGEN SATURATION 68.6 % (92.0-98.5); BG OXYHEMOGLOBIN 68.1 % (94.0-97.0); BG PCO2 46.6 mmHg (35.0-45.0); BG PH 7.392 (7.350-7.450); BG PO2 35.8 mmHg (75.0-100.0); BG SAMPLE SITE RIGHT RADIAL; BG TOTAL HEMOGLOBIN 12.3 g/dL (12.0-18.0); BG VENT MODE ROOM AIR
[2020-03-15 07:10] LABS: BASOPHILS % 0.5 % (0.0-2.0); HEMATOCRIT. 37.9 % (36.0-48.0); HEMOGLOBIN. 12.6 g/dL (12.0-16.0); LYMPHOCYTES % 12.2 % (20.0-50.0); MEAN CORPUSCULAR HEMOGLOBIN 30.6 pg (28.0-32.0); MEAN CORPUSCULAR VOLUME 92.1 fL (81.0-99.0); MONOCYTES % 12.3 % (2.0-8.0); PLATELET 160 x1000/uL (130-400); RED BLOOD CELL COUNT 4.11 mill/uL (4.2-5.4); RED CELL DISTRIBUTION WIDTH 14.4 % (11.6-14.6)
[2020-03-15] MEDS: INSULIN LISPRO 100 UNITS/ML SUBCUT SCH ×4 (07:29→20:51)
[2020-03-15] MEDS: BLOOD SUGAR DIAGNOSTIC STRIP TEST SCH ×4 (07:29→20:51)
[2020-03-15 07:57] VITALS: BP 115/45
[2020-03-15] MEDS: THIAMINE HCL 100MG TABLET PO SCH ×2 (08:46→17:00)
[2020-03-15] MEDS: ASCORBIC ACID 500 MG TABLET PO SCH ×2 (08:46→17:00)
[2020-03-15] MEDS: ZINC SULFATE 220 MG ( 50 ) CAPSULE PO SCH (08:46)
[2020-03-15] MEDS: AZITHROMYCIN 500 MG TABLET PO SCH (08:46)
[2020-03-15] MEDS: ENOXAPARIN 30MG/0.3ML SYR SUBCUT SCH (08:46)
[2020-03-15 09:12] LABS: BG BASE EXCESS -0.4 mmol/L (-2.0-2.0); BG CARBOXYHEMOGLOBIN 0.3 % (0.5-1.5); BG DEOXYHEMOGLOBIN 6.8 % (0.0-5.0); BG HCO3 ACT 24.6 mmol/L (22.0-26.0); BG METHEMOGLOBIN 0.5 % (0.0-1.5); BG OXYGEN SATURATION 93.1 % (92.0-98.5); BG OXYHEMOGLOBIN 92.4 % (94.0-97.0); BG PCO2 41.9 mmHg (35.0-45.0); BG PH 7.387 (7.350-7.450); BG PO2 69.9 mmHg (75.0-100.0); BG SAMPLE SITE RIGHT RADIAL; BG TOTAL HEMOGLOBIN 12.2 g/dL (12.0-18.0); BG VENT MODE NASAL CANNULA
[2020-03-15 12:00] VITALS: BP 110/49
[2020-03-15 16:00] VITALS: BP 97/63
[2020-03-15] MEDS: CEFTRIAXONE 1 G PREMIX 50 ML IV SCH (17:00)
[2020-03-15 20:00] VITALS: BP 101/41
[2020-03-16] VITALS: BP 110/50
[2020-03-16 04:00] VITALS: BP 111/40
[2020-03-16 06:48] LABS: BASOPHILS % 0.8 % (0.0-2.0); HEMATOCRIT. 36.4 % (36.0-48.0); HEMOGLOBIN. 12.1 g/dL (12.0-16.0); LYMPHOCYTES % 16.8 % (20.0-50.0); MEAN CORPUSCULAR HEMOGLOBIN 30.6 pg (28.0-32.0); MEAN CORPUSCULAR VOLUME 92.2 fL (81.0-99.0); MEAN PLATELET VOLUME 9.7 fl (7.4-10.4); MONOCYTES % 14.9 % (2.0-8.0); NEUTROPHILS % 65.5 % (40.0-76.0); PLATELET 188 x1000/uL (130-400); RED BLOOD CELL COUNT 3.94 mill/uL (4.2-5.4); RED CELL DISTRIBUTION WIDTH 14.4 % (11.6-14.6)
[2020-03-16] MEDS: BLOOD SUGAR DIAGNOSTIC STRIP TEST SCH ×4 (07:06→21:14)
[2020-03-16] MEDS: INSULIN LISPRO 100 UNITS/ML SUBCUT SCH ×4 (07:48→22:10)
[2020-03-16 08:00] VITALS: BP 84/40
[2020-03-16] MEDS: ZINC SULFATE 220 MG ( 50 ) CAPSULE PO SCH (11:08)
[2020-03-16] MEDS: THIAMINE HCL 100MG TABLET PO SCH ×2 (11:08→17:49)
[2020-03-16] MEDS: ASCORBIC ACID 500 MG TABLET PO SCH ×2 (11:09→17:49)
[2020-03-16] MEDS: ENOXAPARIN 30MG/0.3ML SYR SUBCUT SCH (11:09)
[2020-03-16 12:00] VITALS: BP 109/48
[2020-03-16 16:00] VITALS: BP 99/67
[2020-03-16] MEDS: PREDNISONE 20MG TABLET PO SCH (18:31)
[2020-03-16 20:00] VITALS: BP 122/52
[2020-03-16] MEDS: ALBUTEROL 6.7GM HFA INHALER ORI SCH (22:52)
[2020-03-17] VITALS: BP 119/39
[2020-03-17 04:00] VITALS: BP 115/45
[2020-03-17] MEDS: ALBUTEROL 6.7GM HFA INHALER ORI SCH ×3 (04:10→14:00)
[2020-03-17] MEDS: BLOOD SUGAR DIAGNOSTIC STRIP TEST SCH ×2 (06:53→12:42)
[2020-03-17 07:10] LABS: BASOPHILS % 0.2 % (0.0-2.0); EOSINOPHILS % 0.1 % (0.0-5.0); HEMATOCRIT. 35.8 % (36.0-48.0); HEMOGLOBIN. 12.1 g/dL (12.0-16.0); LYMPHOCYTES % 12.5 % (20.0-50.0); MEAN CORPUSCULAR HEMOGLOBIN 31.1 pg (28.0-32.0); MEAN PLATELET VOLUME 9.7 fl (7.4-10.4); MONOCYTES % 2.7 % (2.0-8.0); NEUTROPHILS % 84.5 % (40.0-76.0); PLATELET 219 x1000/uL (130-400); RED BLOOD CELL COUNT 3.89 mill/uL (4.2-5.4)
[2020-03-17 08:00] VITALS: BP 141/64
[2020-03-17] MEDS: INSULIN LISPRO 100 UNITS/ML SUBCUT SCH (08:33)
[2020-03-17] MEDS: ASCORBIC ACID 500 MG TABLET PO SCH ×2 (08:34→17:00)
[2020-03-17] MEDS: THIAMINE HCL 100MG TABLET PO SCH ×2 (08:34→17:00)
[2020-03-17] MEDS: ENOXAPARIN 30MG/0.3ML SYR SUBCUT SCH (08:34)
[2020-03-17] MEDS: ZINC SULFATE 220 MG ( 50 ) CAPSULE PO SCH (08:34)
[2020-03-17] MEDS: PREDNISONE 20MG TABLET PO SCH ×2 (08:36→17:00)
[2020-03-17 12:00] VITALS: BP 126/52
[2020-03-17] MEDS ORDERED: DEXTROSE 50% WATER 50ML SYRINGE IV PRN ×2 (13:45)
[2020-03-17] MEDS ORDERED: INSULIN LISPRO 100 UNITS/ML SUBCUT ONE (13:45)
[2020-03-17] MEDS ORDERED: PROSOL IH (13:51)
[2020-03-17] MEDS ORDERED: INSULIN LISPRO 100 UNITS/ML SUBCUT NR (14:15)
[2020-03-17] MEDS ORDERED: INSULIN GLARGINE UD 100 UNITS/ML SYR SUBCUT NR (15:30)
[2020-03-17 16:00] VITALS: BP 160/61
[2020-03-17] MEDS ORDERED: BLOOD SUGAR DIAGNOSTIC STRIP TEST SCH (17:40)
[2020-03-17] MEDS ORDERED: INSULIN LISPRO 100 UNITS/ML SUBCUT SCH (18:10)
[2020-03-17 20:00] VITALS: BP 106/53
[2020-03-17] MEDS ORDERED: INSULIN GLARGINE UD 100 UNITS/ML SYR SUBCUT SCH (22:00)
== END 2020-03-17 20:25 | disposition home or self-care (01) | DRG 720 ==
LOC: ER 20:36 → 3WST 03-11 00:09 → ENRESERV 03-11 14:23 → 7WST 03-14 22:23
PROVIDERS: ADMIT Internal Medicine; ATTEND Internal Medicine
PROC: 5A1D70Z Performance of Urinary Filtration, Intermittent, Less than 6 Hours Per Day (ICD-10-PCS; 2020-03-11)
PROC: 5A1D70Z Performance of Urinary Filtration, Intermittent, Less than 6 Hours Per Day (ICD-10-PCS; 2020-03-12)
PROC: 5A1D70Z Performance of Urinary Filtration, Intermittent, Less than 6 Hours Per Day (ICD-10-PCS; 2020-03-14)
PROC: 5A1D70Z Performance of Urinary Filtration, Intermittent, Less than 6 Hours Per Day (ICD-10-PCS; principal; 2020-03-17)
DX: A41.89 Other specified sepsis (principal); U07.1 COVID-19; J96.01 Acute respiratory failure with hypoxia; I13.2 Hypertensive heart and chronic kidney disease with heart failure and with stage 5 chronic kidney disease, or end stage renal disease; E44.0 Moderate protein-calorie malnutrition; D69.6 Thrombocytopenia, unspecified; N18.6 End stage renal disease; E11.22 Type 2 diabetes mellitus with diabetic chronic kidney disease; I27.20 Pulmonary hypertension, unspecified; M86.8X7 Other osteomyelitis, ankle and foot; R26.9 Unspecified abnormalities of gait and mobility; D72.819 Decreased white blood cell count, unspecified; I50.9 Heart failure, unspecified; J12.89 Other viral pneumonia; E87.5 Hyperkalemia; E11.42 Type 2 diabetes mellitus with diabetic polyneuropathy; D64.9 Anemia, unspecified; E66.9 Obesity, unspecified; I25.10 Atherosclerotic heart disease of native coronary artery without angina pectoris; Z86.73 Personal history of transient ischemic attack (TIA), and cerebral infarction without residual deficits; Z91.15 Patient's noncompliance with renal dialysis; Z68.30 Body mass index [BMI] 30.0-30.9, adult; Z82.49 Family history of ischemic heart disease and other diseases of the circulatory system; Z88.6 Allergy status to analgesic agent; Z90.49 Acquired absence of other specified parts of digestive tract; Z99.2 Dependence on renal dialysis; Z88.1 Allergy status to other antibiotic agents; Z79.899 Other long term (current) drug therapy; Z71.3 Dietary counseling and surveillance
CPT/HCPCS: 36415; 36600; 71045; 78580; 80048; 80053; 82375; 82728; 82805; 82962; 83036; 83615; 83880; 84145; 85025; 85379; 86140; 87015; 87045; 87427; 87449; 92610; 93005; 93306; 97162; 97166; 97530; 99285; J0696; J1650; J1815; J3490; J7512; U0003-CS

== ENCOUNTER 2020-05-28 11:11 | Inpatient (IN) | payer MEDICARE, MEDICAID ==
[~2020-05-28] VITALS: Ht 167.6 cm; Wt 84.8 kg
[~2020-05-28 11:11] MED LIST changes: +PROSOL IH
[2020-05-28 12:13] LABS: BASOPHILS % 1.1 % (0.0-2.0); EOSINOPHILS % 2.2 % (0.0-5.0); HEMATOCRIT. 29.9 % (36.0-48.0); HEMOGLOBIN. 10.1 g/dL (12.0-16.0); LYMPHOCYTES % 20.5 % (20.0-50.0); MEAN CORPUSCULAR HEMOGLOBIN 32.1 pg (28.0-32.0); MEAN CORPUSCULAR VOLUME 95.5 fL (81.0-99.0); MEAN PLATELET VOLUME 9.9 fl (7.4-10.4); MONOCYTES % 13.8 % (2.0-8.0); NEUTROPHILS % 62.4 % (40.0-76.0); PLATELET 120 x1000/uL (130-400); RED BLOOD CELL COUNT 3.13 mill/uL (4.2-5.4); RED CELL DISTRIBUTION WIDTH 14.9 % (11.6-14.6)
[2020-05-28 12:18] LABS: CHLORIDE 107 mEq/L (98-107)
[2020-05-28 12:21] LABS: INR 1.1; PROTHROMBIN TIME 11.4 sec (9.6-11.0)
[2020-05-28] MEDS ORDERED: LORAZEPAM 2MG/ML CPJ IV PRN (16:00)
[2020-05-28] MEDS ORDERED: CLONIDINE 0.1MG TABLET PO PRN (16:00)
[2020-05-28] MEDS ORDERED: ONDANSETRON HCL 4MG/2ML INJ IV PRN (16:00)
[2020-05-28] MEDS ORDERED: IPRATROPIUM/ALBUTEROL 0.5-3(2.5)MG/3ML NEB NEB PRN (16:00)
[2020-05-28] MEDS ORDERED: GUAIFENESIN 200MG/10ML SUGAR FREE UDC PO PRN (16:00)
[2020-05-28] MEDS ORDERED: NA PHOS,M-B/NA PHOS,DI-BA ENEMA 118ML PR PRN (16:00)
[2020-05-28] MEDS ORDERED: ENOXAPARIN 40MG/0.4ML SYR SUBCUT SCH (16:00)
[2020-05-28] MEDS ORDERED: DOCUSATE SODIUM 100MG CAPSULE PO PRN (16:00)
[2020-05-28] MEDS ORDERED: MORPHINE SULFATE 2 MG/ML CPJ (NOT FOR IM USE) IV PRN (16:00)
[2020-05-28] MEDS ORDERED: MAGNESIUM/ALUMINUM HYDROXIDE/SIMETHICONE 30ML UDC PO PRN (16:00)
[2020-05-28] MEDS: LOSARTAN POTASSIUM 25 MG TABLET PO SCH ×2 (16:15→16:52)
[2020-05-28] MEDS: AZITHROMYCIN 500 MG in DEXT 5% WATER 250 ML IV SCH (16:25)
[2020-05-28] MEDS: ENOXAPARIN 30MG/0.3ML SYR SUBCUT SCH (16:35)
[2020-05-28] MEDS ORDERED: DEXTROSE 50% WATER 50ML SYRINGE IV PRN (17:30)
[2020-05-28] MEDS: BLOOD SUGAR DIAGNOSTIC STRIP TEST SCH ×2 (17:53→21:00)
[2020-05-28] MEDS: INSULIN LISPRO 100 UNITS/ML SUBCUT SCH ×2 (18:20→21:00)
[2020-05-29] VITALS (7 sets, daily range): BP systolic 106–169; BP diastolic 55–67
[2020-05-29 00:11] LABS: CHLORIDE 107 mEq/L (98-107)
[2020-05-29] MEDS: BLOOD SUGAR DIAGNOSTIC STRIP TEST SCH ×4 (05:23→20:42)
[2020-05-29] MEDS: INSULIN LISPRO 100 UNITS/ML SUBCUT SCH ×4 (08:35→20:42)
[2020-05-29] MEDS: AZITHROMYCIN 500 MG in DEXT 5% WATER 250 ML IV SCH (15:26)
[2020-05-29] MEDS: ENOXAPARIN 30MG/0.3ML SYR SUBCUT SCH (15:29)
[2020-05-29 21:33] LABS: HEMATOCRIT. 29.3 % (36.0-48.0); HEMOGLOBIN. 9.8 g/dL (12.0-16.0); MEAN CORPUSCULAR HEMOGLOBIN 31.9 pg (28.0-32.0); MEAN CORPUSCULAR VOLUME 95.9 fL (81.0-99.0); MEAN PLATELET VOLUME 9.8 fl (7.4-10.4); PLATELET 100 x1000/uL (130-400); RED BLOOD CELL COUNT 3.06 mill/uL (4.2-5.4)
[2020-05-29 21:40] LABS: CHLORIDE 108 mEq/L (98-107)
[2020-05-29 21:47] LABS: LDL CHOLESTEROL 34 mg/dL (5-100)
[2020-05-29 21:49] LABS: HDL CHOLESTEROL 93 mg/dL (40-59); T4 FREE 1.11 ng/dL (0.76-1.46)
[2020-05-29 22:19] LABS: PLATELET ESTIMATE DECREASED
[2020-05-30] VITALS (7 sets, daily range): BP systolic 107–153; BP diastolic 45–102
[2020-05-30] MEDS: ACETAMINOPHEN 325MG TABLET PO PRN (01:12)
[2020-05-30] MEDS: BLOOD SUGAR DIAGNOSTIC STRIP TEST SCH ×4 (05:34→21:20)
[2020-05-30] MEDS: INSULIN LISPRO 100 UNITS/ML SUBCUT SCH ×4 (05:51→21:00)
[2020-05-30] MEDS: LOSARTAN POTASSIUM 25 MG TABLET PO SCH (10:53)
[2020-05-30] MEDS: HYDROCODONE/ACETAMINOPHEN 5/325MG TABLET PO PRN (10:53)
[2020-05-30 11:47] LABS: HEMATOCRIT. 31.7 % (36.0-48.0); HEMOGLOBIN. 10.7 g/dL (12.0-16.0); MEAN CORPUSCULAR HEMOGLOBIN 31.8 pg (28.0-32.0); MEAN CORPUSCULAR VOLUME 94.3 fL (81.0-99.0); MEAN PLATELET VOLUME 10.5 fl (7.4-10.4); PLATELET 117 x1000/uL (130-400); RED BLOOD CELL COUNT 3.36 mill/uL (4.2-5.4); RED CELL DISTRIBUTION WIDTH 14.9 % (11.6-14.6)
[2020-05-30 13:06] LABS: PLATELET ESTIMATE SLIGHTLY DECREASED
[2020-05-30] MEDS: ENOXAPARIN 30MG/0.3ML SYR SUBCUT SCH (16:21)
[2020-05-30] MEDS: AZITHROMYCIN 250 MG TABLET PO SCH (16:21)
[2020-05-30] MEDS ORDERED: POTASSIUM CHLORIDE 20MEQ/PACKET PO NR (21:30)
[2020-05-31] VITALS: BP 121/49
[2020-05-31 04:00] VITALS: BP 126/66
[2020-05-31] MEDS: BLOOD SUGAR DIAGNOSTIC STRIP TEST SCH ×4 (07:00→21:00)
[2020-05-31] MEDS: INSULIN LISPRO 100 UNITS/ML SUBCUT SCH ×4 (07:00→21:00)
[2020-05-31 08:00] VITALS: BP 108/48
[2020-05-31] MEDS: ENOXAPARIN 40MG/0.4ML SYR SUBCUT SCH (08:28)
[2020-05-31] MEDS: LOSARTAN POTASSIUM 25 MG TABLET PO SCH (08:31)
[2020-05-31 08:38] LABS: HEMATOCRIT. 28.5 % (36.0-48.0); HEMOGLOBIN. 9.5 g/dL (12.0-16.0); MEAN CORPUSCULAR HEMOGLOBIN 31.8 pg (28.0-32.0); MEAN CORPUSCULAR VOLUME 95.2 fL (81.0-99.0); MEAN PLATELET VOLUME 10.7 fl (7.4-10.4); PLATELET 99 x1000/uL (130-400); RED CELL DISTRIBUTION WIDTH 14.2 % (11.6-14.6)
[2020-05-31 10:19] LABS: PLATELET ESTIMATE DECREASED
[2020-05-31 11:49] VITALS: BP 124/42
[2020-05-31 13:28] LABS: CHLORIDE 102 mEq/L (98-107)
[2020-05-31 16:00] VITALS: BP 138/49
[2020-05-31] MEDS: AZITHROMYCIN 250 MG TABLET PO SCH (16:23)
[2020-05-31] MEDS: DIPHENHYDRAMINE 50MG/ML VIAL IV PRN ×2 (17:03→23:47)
[2020-05-31 20:00] VITALS: BP 148/53
[2020-06-01] VITALS: BP 114/61
[2020-06-01 04:00] VITALS: BP 132/58
[2020-06-01 06:22] LABS: HEMATOCRIT. 29.3 % (36.0-48.0); HEMOGLOBIN. 9.7 g/dL (12.0-16.0); MEAN CORPUSCULAR HEMOGLOBIN 31.4 pg (28.0-32.0); MEAN CORPUSCULAR VOLUME 94.2 fL (81.0-99.0); MEAN PLATELET VOLUME 10.8 fl (7.4-10.4); PLATELET 108 x1000/uL (130-400); RED BLOOD CELL COUNT 3.11 mill/uL (4.2-5.4); RED CELL DISTRIBUTION WIDTH 14.6 % (11.6-14.6)
[2020-06-01] MEDS: BLOOD SUGAR DIAGNOSTIC STRIP TEST SCH ×4 (07:00→21:09)
[2020-06-01] MEDS: INSULIN LISPRO 100 UNITS/ML SUBCUT SCH ×4 (07:01→21:22)
[2020-06-01 08:00] VITALS: BP 128/59
[2020-06-01] MEDS: LOSARTAN POTASSIUM 25 MG TABLET PO SCH (09:06)
[2020-06-01] MEDS: ENOXAPARIN 40MG/0.4ML SYR SUBCUT SCH (09:07)
[2020-06-01 11:44] LABS: PLATELET ESTIMATE DECREASED
[2020-06-01 12:00] VITALS: BP_SYST 139; BP_DIAS 65; BP_DIAS 68
[2020-06-01] MEDS: METOPROLOL TARTRATE 25MG TABLET PO SCH ×2 (15:00→23:00)
[2020-06-01 16:00] VITALS: BP 158/57
[2020-06-01] MEDS: AZITHROMYCIN 250 MG TABLET PO SCH (17:31)
[2020-06-01 18:34] LABS: BG BASE EXCESS -1.1 mmol/L (-2.0-2.0); BG CARBOXYHEMOGLOBIN 0.2 % (0.5-1.5); BG DEOXYHEMOGLOBIN 11.1 % (0.0-5.0); BG FRACTION INSPIRED OXYGEN 21; BG HCO3 ACT 23.2 mmol/L (22.0-26.0); BG METHEMOGLOBIN 0.1 % (0.0-1.5); BG OXYGEN SATURATION 88.9 % (92.0-98.5); BG OXYHEMOGLOBIN 88.6 % (94.0-97.0); BG PH 7.415 (7.350-7.450); BG PO2 57.7 mmHg (75.0-100.0); BG SAMPLE SITE RIGHT RADIAL; BG TOTAL HEMOGLOBIN 11.1 g/dL (12.0-18.0); BG VENT MODE ROOM AIR
[2020-06-01 20:00] VITALS: BP 126/40
[2020-06-01] MEDS: HYDROCODONE/ACETAMINOPHEN 5/325MG TABLET PO PRN (21:39)
[2020-06-02 00:12] VITALS: BP 122/45
[2020-06-02 04:00] VITALS: BP 130/58
[2020-06-02] MEDS: INSULIN LISPRO 100 UNITS/ML SUBCUT SCH ×4 (06:10→20:34)
[2020-06-02] MEDS: BLOOD SUGAR DIAGNOSTIC STRIP TEST SCH ×4 (06:10→20:33)
[2020-06-02 07:52] LABS: HEMATOCRIT. 30.2 % (36.0-48.0); MEAN CORPUSCULAR HEMOGLOBIN 31.1 pg (28.0-32.0); MEAN CORPUSCULAR VOLUME 94.1 fL (81.0-99.0); MEAN PLATELET VOLUME 10.8 fl (7.4-10.4); PLATELET 121 x1000/uL (130-400); RED BLOOD CELL COUNT 3.21 mill/uL (4.2-5.4); RED CELL DISTRIBUTION WIDTH 14.4 % (11.6-14.6)
[2020-06-02 08:00] VITALS: BP 127/63
[2020-06-02] MEDS: METOPROLOL TARTRATE 25MG TABLET PO SCH ×2 (09:04→20:33)
[2020-06-02] MEDS: LOSARTAN POTASSIUM 25 MG TABLET PO SCH (09:04)
[2020-06-02] MEDS: ENOXAPARIN 40MG/0.4ML SYR SUBCUT SCH (09:04)
[2020-06-02] MEDS: HYDROCODONE/ACETAMINOPHEN 5/325MG TABLET PO PRN (09:10)
[2020-06-02 12:00] VITALS: BP 99/60
[2020-06-02 16:00] VITALS: BP 99/56
[2020-06-02 16:15] LABS: PLATELET ESTIMATE DECREASED
[2020-06-02 19:52] VITALS: BP 115/42
[2020-06-03] VITALS (7 sets, daily range): BP systolic 114–161; BP diastolic 40–50
[2020-06-03] MEDS: ACETAMINOPHEN 325MG TABLET PO PRN ×2 (04:25→11:02)
[2020-06-03] MEDS: BLOOD SUGAR DIAGNOSTIC STRIP TEST SCH ×3 (05:46→17:38)
[2020-06-03] MEDS: INSULIN LISPRO 100 UNITS/ML SUBCUT SCH ×3 (05:46→18:11)
[2020-06-03 06:42] LABS: HEMATOCRIT. 29.5 % (36.0-48.0); HEMOGLOBIN. 9.9 g/dL (12.0-16.0); MEAN CORPUSCULAR HEMOGLOBIN 31.6 pg (28.0-32.0); MEAN CORPUSCULAR VOLUME 93.7 fL (81.0-99.0); MEAN PLATELET VOLUME 10.4 fl (7.4-10.4); PLATELET 112 x1000/uL (130-400); RED BLOOD CELL COUNT 3.15 mill/uL (4.2-5.4); RED CELL DISTRIBUTION WIDTH 14.2 % (11.6-14.6)
[2020-06-03] MEDS ORDERED: ENOXAPARIN 30MG/0.3ML SYR SUBCUT SCH (09:00)
[2020-06-03] MEDS: METOPROLOL TARTRATE 25MG TABLET PO SCH (09:00)
[2020-06-03] MEDS: LOSARTAN POTASSIUM 25 MG TABLET PO SCH (09:53)
[2020-06-03 17:39] LABS: PLATELET ESTIMATE DECREASED
[2020-06-03] MEDS ORDERED: HYDROCODONE/ACETAMINOPHEN 5/325MG TABLET PO PRN (21:30)
[2020-06-03] MEDS ORDERED: ALBUTEROL SULFATE IH PRN (21:30)
[2020-06-04] MEDS ORDERED: GABAPENTIN 100MG CAPSULE PO SCH (09:00)
[2020-06-04] MEDS ORDERED: SEVELAMER CARBONATE 800 MG TABLET PO SCH (09:00)
[2020-06-04] MEDS ORDERED: LOSARTAN POTASSIUM 50 MG TABLET PO SCH (09:00)
[2020-06-04] MEDS ORDERED: AMLODIPINE 10MG TABLET PO SCH (09:00)
[2020-06-04] MEDS ORDERED: ATORVASTATIN CALCIUM 10MG TABLET PO SCH (21:00)
== END 2020-06-03 22:42 | disposition home or self-care (01) | DRG 133 ==
LOC: ER 11:11 → 7WST 14:41 → EDBEDREQSVC 17:34 → ENRESERV 20:41 → 8WST 05-29 16:34
PROVIDERS: ADMIT Internal Medicine; ATTEND Internal Medicine
DX: J96.01 Acute respiratory failure with hypoxia (principal); J81.0 Acute pulmonary edema; D63.8 Anemia in other chronic diseases classified elsewhere; D69.6 Thrombocytopenia, unspecified; E11.22 Type 2 diabetes mellitus with diabetic chronic kidney disease; E87.5 Hyperkalemia; I13.2 Hypertensive heart and chronic kidney disease with heart failure and with stage 5 chronic kidney disease, or end stage renal disease; I25.10 Atherosclerotic heart disease of native coronary artery without angina pectoris; I45.10 Unspecified right bundle-branch block; I50.32 Chronic diastolic (congestive) heart failure; J44.9 Chronic obstructive pulmonary disease, unspecified; N18.6 End stage renal disease; E83.42 Hypomagnesemia; E11.41 Type 2 diabetes mellitus with diabetic mononeuropathy; E11.65 Type 2 diabetes mellitus with hyperglycemia; E46 Unspecified protein-calorie malnutrition; Z20.828 Contact with and (suspected) exposure to other viral communicable diseases; G57.91 Unspecified mononeuropathy of right lower limb; Z99.2 Dependence on renal dialysis; Z86.73 Personal history of transient ischemic attack (TIA), and cerebral infarction without residual deficits; Z91.15 Patient's noncompliance with renal dialysis; Z91.19 Patient's noncompliance with other medical treatment and regimen; Z79.899 Other long term (current) drug therapy; Z88.1 Allergy status to other antibiotic agents; Z88.8 Allergy status to other drugs, medicaments and biological substances; Z79.891 Long term (current) use of opiate analgesic; Z90.49 Acquired absence of other specified parts of digestive tract; Z68.30 Body mass index [BMI] 30.0-30.9, adult
CPT/HCPCS: 36415; 36600; 71045; 80048; 80053; 80061; 82375; 82805; 82962; 83036; 83735; 83880; 84439; 84443; 84484; 85025; 87635; 93005; 99285; J0456; J1200; J1650; J1815; J7060

== ENCOUNTER 2020-11-17 12:47 | Inpatient (IN) | payer MEDICARE, OTHER ==
[~2020-11-17] VITALS: Ht 175.3 cm; Wt 76.3 kg
[~2020-11-17 12:47] MED LIST changes: +AZIT500T8 MT; -GABA-529 PO
[2020-11-17 13:23] LABS: HEMATOCRIT. 30.5 % (36.0-48.0); MEAN CORPUSCULAR VOLUME 91.9 fL (81.0-99.0); PLATELET 167 x1000/uL (130-400); RED BLOOD CELL COUNT 3.32 mill/uL (4.2-5.4); RED CELL DISTRIBUTION WIDTH 15.1 % (11.6-14.6)
[2020-11-17 13:30] LABS: CHLORIDE 109 mEq/L (98-107)
[2020-11-17 13:34] LABS: INR 1.1; PROTHROMBIN TIME 11.1 sec (9.6-11.0)
[2020-11-17 14:09] LABS: PLATELET ESTIMATE NORMAL
[2020-11-17] MEDS ORDERED: SODIUM CHLORIDE 0.9% 250 ML IV ONE (16:30)
[2020-11-17] MEDS ORDERED: ACETAMINOPHEN 325MG TABLET PO PRN (17:30)
[2020-11-17] MEDS ORDERED: HYDROCODONE/ACETAMINOPHEN 5/325MG TABLET PO PRN (17:30)
[2020-11-17] MEDS ORDERED: LORAZEPAM 0.5MG TABLET PO PRN (17:30)
[2020-11-17] MEDS ORDERED: CLONIDINE 0.1MG TABLET PO PRN (17:30)
[2020-11-17] MEDS ORDERED: IPRATROPIUM/ALBUTEROL 0.5-3(2.5)MG/3ML NEB HHN PRN (17:30)
[2020-11-17] MEDS ORDERED: ONDANSETRON HCL 4MG/2ML INJ IV PRN (17:30)
[2020-11-17] MEDS ORDERED: DOCUSATE SODIUM 100MG CAPSULE PO PRN (17:30)
[2020-11-17] MEDS ORDERED: NOREPINEPHRINE 8 MG in DEXT 5% WATER 242 ML IV PRN (18:15)
[2020-11-17 18:27] LABS: BG BASE EXCESS -3.5 mmol/L (-2.0-2.0); BG CARBOXYHEMOGLOBIN 0.3 % (0.5-1.5); BG DEOXYHEMOGLOBIN 3.9 % (0.0-5.0); BG HCO3 ACT 23.4 mmol/L (22.0-26.0); BG METHEMOGLOBIN 0.3 % (0.0-1.5); BG OXYGEN SATURATION 96.1 % (92.0-98.5); BG OXYHEMOGLOBIN 95.5 % (94.0-97.0); BG PCO2 51.5 mmHg (35.0-45.0); BG PH 7.276 (7.350-7.450); BG PO2 100.7 mmHg (75.0-100.0); BG SAMPLE SITE RIGHT BRACHIAL; BG TOTAL HEMOGLOBIN 9.9 g/dL (12.0-18.0); BG VENT MODE NASAL CANNULA
[2020-11-17] MEDS: NOREPINEPHRINE 8 MG in DEXT 5% WATER 242 ML IV PRN (23:21)
[2020-11-18] VITALS (37 sets, daily range): BP systolic 60–188; BP diastolic 25–150
[2020-11-18] MEDS ORDERED: DEXTROSE 50% WATER 50ML SYRINGE IV PRN (00:30)
[2020-11-18 04:55] LABS: HEMATOCRIT. 32.8 % (36.0-48.0); HEMOGLOBIN. 10.8 g/dL (12.0-16.0); MEAN CORPUSCULAR HEMOGLOBIN 29.9 pg (28.0-32.0); MEAN CORPUSCULAR VOLUME 90.6 fL (81.0-99.0); MEAN PLATELET VOLUME 9.7 fl (7.4-10.4); PLATELET 161 x1000/uL (130-400); RED BLOOD CELL COUNT 3.62 mill/uL (4.2-5.4); RED CELL DISTRIBUTION WIDTH 15.2 % (11.6-14.6)
[2020-11-18 05:45] LABS: PLATELET ESTIMATE NORMAL
[2020-11-18] MEDS ORDERED: INSULIN LISPRO (PRANDIAL)100 UNITS/ML SUBCUT SCH (07:50)
[2020-11-18] MEDS: BLOOD SUGAR DIAGNOSTIC STRIP TEST SCH ×4 (08:09→21:39)
[2020-11-18] MEDS: INSULIN LISPRO (LOW DOSE) 100 UNITS/ML SUBCUT SCH ×4 (08:09→21:00)
[2020-11-18] MEDS ORDERED: INSULIN REGULAR HUMAN (HIGH DOSE) 100 UNITS/ML 3ML VIAL SUBCUT SCH (08:20)
[2020-11-18] MEDS ORDERED: INSULIN REGULAR HUMAN (CUSTOM DOSE) 100 UNITS/ML 3ML VIAL SUBCUT SCH (08:20)
[2020-11-18] MEDS ORDERED: INSULIN LISPRO (HIGH DOSE) 100 UNITS/ML SUBCUT SCH (08:20)
[2020-11-18] MEDS ORDERED: INSULIN LISPRO (CUSTOM DOSE) 100 UNITS/ML SUBCUT SCH (08:20)
[2020-11-18] MEDS ORDERED: INSULIN REGULAR HUMAN (LOW DOSE) 100 UNITS/ML 3ML VIAL SUBCUT SCH (08:20)
[2020-11-18] MEDS ORDERED: INSULIN LISPRO (MEDIUM DOSE) 100 UNITS/ML SUBCUT SCH (08:20)
[2020-11-18] MEDS ORDERED: INSULIN REGULAR HUMAN (MEDIUM DOSE) 100 UNITS/ML 3ML VIAL SUBCUT SCH (08:20)
[2020-11-18] MEDS ORDERED: LIDOCAINE HCL 1% 20ML VIAL (Pyxis) INJ ONE (10:23)
[2020-11-18] MEDS: NOREPINEPHRINE 8 MG in DEXT 5% WATER 242 ML IV PRN (17:22)
[2020-11-18] MEDS ORDERED: INSULIN GLARGINE UD 100 UNITS/ML SYR SUBCUT SCH (22:00)
[2020-11-19] VITALS (86 sets, daily range): BP systolic 58–164; BP diastolic 18–100
[2020-11-19] MEDS: NOREPINEPHRINE 32 MG in DEXT 5% WATER 218 ML IV PRN (03:35)
[2020-11-19 06:53] LABS: HEMATOCRIT. 34.1 % (36.0-48.0); MEAN CORPUSCULAR HEMOGLOBIN 29.8 pg (28.0-32.0); MEAN CORPUSCULAR VOLUME 92.7 fL (81.0-99.0); MEAN PLATELET VOLUME 9.8 fl (7.4-10.4); PLATELET 136 x1000/uL (130-400); RED BLOOD CELL COUNT 3.68 mill/uL (4.2-5.4); RED CELL DISTRIBUTION WIDTH 15.1 % (11.6-14.6)
[2020-11-19] MEDS: INSULIN LISPRO (LOW DOSE) 100 UNITS/ML SUBCUT SCH ×4 (08:00→21:00)
[2020-11-19] MEDS: BLOOD SUGAR DIAGNOSTIC STRIP TEST SCH ×4 (08:25→21:00)
[2020-11-19 20:22] LABS: PLATELET ESTIMATE NORMAL
[2020-11-20] VITALS (59 sets, daily range): BP systolic 83–198; BP diastolic 28–154
[2020-11-20 06:41] LABS: HEMATOCRIT. 32.3 % (36.0-48.0); HEMOGLOBIN. 10.6 g/dL (12.0-16.0); MEAN CORPUSCULAR HEMOGLOBIN 30.2 pg (28.0-32.0); MEAN CORPUSCULAR VOLUME 91.7 fL (81.0-99.0); MEAN PLATELET VOLUME 9.9 fl (7.4-10.4); PLATELET 139 x1000/uL (130-400); RED BLOOD CELL COUNT 3.53 mill/uL (4.2-5.4); RED CELL DISTRIBUTION WIDTH 15.1 % (11.6-14.6)
[2020-11-20] MEDS: INSULIN LISPRO (LOW DOSE) 100 UNITS/ML SUBCUT SCH ×4 (07:44→21:00)
[2020-11-20] MEDS: BLOOD SUGAR DIAGNOSTIC STRIP TEST SCH ×4 (07:44→21:00)
[2020-11-20 21:46] LABS: PLATELET ESTIMATE NORMAL
[2020-11-21] VITALS (75 sets, daily range): BP systolic 66–170; BP diastolic 23–79
[2020-11-21 07:07] LABS: HEMATOCRIT. 32.1 % (36.0-48.0); HEMOGLOBIN. 10.5 g/dL (12.0-16.0); MEAN CORPUSCULAR HEMOGLOBIN 29.9 pg (28.0-32.0); MEAN CORPUSCULAR VOLUME 91.1 fL (81.0-99.0); MEAN PLATELET VOLUME 9.9 fl (7.4-10.4); PLATELET 135 x1000/uL (130-400); RED BLOOD CELL COUNT 3.52 mill/uL (4.2-5.4)
[2020-11-21] MEDS: BLOOD SUGAR DIAGNOSTIC STRIP TEST SCH ×4 (08:00→21:01)
[2020-11-21] MEDS: INSULIN LISPRO (LOW DOSE) 100 UNITS/ML SUBCUT SCH ×4 (08:00→21:00)
[2020-11-21] MEDS: MIDODRINE HCL 5MG TABLET PO SCH ×2 (12:31→18:39)
[2020-11-21 13:45] LABS: PLATELET ESTIMATE NORMAL
[2020-11-21] MEDS: GABAPENTIN 100MG CAPSULE PO SCH ×2 (14:36→21:02)
[2020-11-22] VITALS (74 sets, daily range): BP systolic 54–151; BP diastolic 18–117
[2020-11-22] MEDS: NOREPINEPHRINE 32 MG in DEXT 5% WATER 218 ML IV PRN (00:38)
[2020-11-22] MEDS: GABAPENTIN 100MG CAPSULE PO SCH ×3 (05:31→20:34)
[2020-11-22 06:31] LABS: HEMATOCRIT. 35.5 % (36.0-48.0); HEMOGLOBIN. 11.5 g/dL (12.0-16.0); MEAN CORPUSCULAR HEMOGLOBIN 29.3 pg (28.0-32.0); MEAN CORPUSCULAR VOLUME 90.9 fL (81.0-99.0); MEAN PLATELET VOLUME 10.6 fl (7.4-10.4); PLATELET 150 x1000/uL (130-400); RED BLOOD CELL COUNT 3.91 mill/uL (4.2-5.4); RED CELL DISTRIBUTION WIDTH 15.2 % (11.6-14.6)
[2020-11-22] MEDS: BLOOD SUGAR DIAGNOSTIC STRIP TEST SCH ×4 (08:16→20:34)
[2020-11-22] MEDS: MIDODRINE HCL 5MG TABLET PO SCH ×3 (08:24→18:09)
[2020-11-22] MEDS: INSULIN LISPRO (LOW DOSE) 100 UNITS/ML SUBCUT SCH ×4 (08:25→20:34)
[2020-11-22] MEDS ORDERED: IOHEXOL-350 100 ML BOTTLE ONE (10:44)
[2020-11-22 13:37] LABS: PLATELET ESTIMATE NORMAL
[2020-11-22 14:40] LABS: PHOSPHORUS 4.3 mg/dL (2.5-4.9)
[2020-11-23] VITALS (92 sets, daily range): BP systolic 50–152; BP diastolic 24–120
[2020-11-23] MEDS: GABAPENTIN 100MG CAPSULE PO SCH ×3 (05:02→22:08)
[2020-11-23] MEDS: NOREPINEPHRINE 32 MG in DEXT 5% WATER 218 ML IV PRN ×2 (05:04→22:40)
[2020-11-23] MEDS: BLOOD SUGAR DIAGNOSTIC STRIP TEST SCH ×4 (05:44→21:00)
[2020-11-23 05:54] LABS: HEMATOCRIT. 37.2 % (36.0-48.0); MEAN CORPUSCULAR HEMOGLOBIN 29.4 pg (28.0-32.0); MEAN CORPUSCULAR VOLUME 91.3 fL (81.0-99.0); MEAN PLATELET VOLUME 10.6 fl (7.4-10.4); PLATELET 124 x1000/uL (130-400); RED BLOOD CELL COUNT 4.08 mill/uL (4.2-5.4); RED CELL DISTRIBUTION WIDTH 15.2 % (11.6-14.6)
[2020-11-23] MEDS: INSULIN LISPRO (LOW DOSE) 100 UNITS/ML SUBCUT SCH ×4 (06:17→22:07)
[2020-11-23] MEDS: MIDODRINE HCL 5MG TABLET PO SCH ×4 (09:49→17:00)
[2020-11-23 12:30] LABS: PLATELET ESTIMATE SLIGHTLY DECREASED
[2020-11-24] VITALS (76 sets, daily range): BP systolic 50–174; BP diastolic 24–123
[2020-11-24 05:45] LABS: HEMATOCRIT. 36.1 % (36.0-48.0); HEMOGLOBIN. 11.6 g/dL (12.0-16.0); MEAN CORPUSCULAR HEMOGLOBIN 29.4 pg (28.0-32.0); MEAN CORPUSCULAR VOLUME 91.4 fL (81.0-99.0); RED BLOOD CELL COUNT 3.95 mill/uL (4.2-5.4)
[2020-11-24] MEDS: GABAPENTIN 100MG CAPSULE PO SCH ×3 (06:00→21:36)
[2020-11-24] MEDS: BLOOD SUGAR DIAGNOSTIC STRIP TEST SCH ×5 (06:42→21:37)
[2020-11-24] MEDS: INSULIN LISPRO (LOW DOSE) 100 UNITS/ML SUBCUT SCH ×4 (06:53→21:37)
[2020-11-24 08:34] LABS: PLATELET ESTIMATE NORMAL
[2020-11-24 08:35] LABS: PLATELET 134 x1000/uL (130-400)
[2020-11-24] MEDS: MIDODRINE HCL 5MG TABLET PO SCH ×3 (09:19→17:15)
[2020-11-24] MEDS: ACETAMINOPHEN 325MG TABLET PO PRN (21:39)
[2020-11-25] VITALS (94 sets, daily range): BP systolic 57–180; BP diastolic 25–132
[2020-11-25] MEDS: NOREPINEPHRINE 32 MG in DEXT 5% WATER 218 ML IV PRN (02:01)
[2020-11-25] MEDS: GABAPENTIN 100MG CAPSULE PO SCH ×3 (05:37→23:03)
[2020-11-25 06:09] LABS: HEMATOCRIT. 36.1 % (36.0-48.0); HEMOGLOBIN. 11.3 g/dL (12.0-16.0); MEAN CORPUSCULAR VOLUME 92.7 fL (81.0-99.0); MEAN PLATELET VOLUME 11.5 fl (7.4-10.4); PLATELET 173 x1000/uL (130-400); RED BLOOD CELL COUNT 3.89 mill/uL (4.2-5.4); RED CELL DISTRIBUTION WIDTH 15.3 % (11.6-14.6)
[2020-11-25] MEDS: BLOOD SUGAR DIAGNOSTIC STRIP TEST SCH ×4 (07:54→22:51)
[2020-11-25] MEDS: MIDODRINE HCL 5MG TABLET PO SCH ×3 (09:16→17:31)
[2020-11-25] MEDS: INSULIN LISPRO (LOW DOSE) 100 UNITS/ML SUBCUT SCH (09:17)
[2020-11-25 10:01] LABS: PLATELET ESTIMATE NORMAL
[2020-11-25] MEDS: INSULIN LISPRO 100 UNITS/ML SUBCUT SCH ×3 (13:33→23:12)
[2020-11-25] MEDS: DEXTROSE 50% WATER 50ML SYRINGE IV PRN (17:30)
[2020-11-25] MEDS: ACETAMINOPHEN 325MG TABLET PO PRN (18:17)
[2020-11-25] MEDS ORDERED: INSULIN LISPRO 100 UNITS/ML SUBCUT SCH (23:45)
[2020-11-26] VITALS (87 sets, daily range): BP systolic 40–193; BP diastolic 28–123
[2020-11-26] MEDS: GABAPENTIN 100MG CAPSULE PO SCH ×3 (05:52→21:32)
[2020-11-26 06:18] LABS: HEMATOCRIT. 32.5 % (36.0-48.0); HEMOGLOBIN. 10.3 g/dL (12.0-16.0); MEAN CORPUSCULAR HEMOGLOBIN 29.2 pg (28.0-32.0); MEAN CORPUSCULAR VOLUME 92.4 fL (81.0-99.0); MEAN PLATELET VOLUME 10.9 fl (7.4-10.4); PLATELET 185 x1000/uL (130-400); RED BLOOD CELL COUNT 3.52 mill/uL (4.2-5.4)
[2020-11-26] MEDS: BLOOD SUGAR DIAGNOSTIC STRIP TEST SCH ×4 (07:30→21:00)
[2020-11-26] MEDS: MIDODRINE HCL 5MG TABLET PO SCH ×3 (08:32→16:29)
[2020-11-26] MEDS: INSULIN LISPRO 100 UNITS/ML SUBCUT SCH ×4 (08:36→21:21)
[2020-11-26 13:41] LABS: PLATELET ESTIMATE NORMAL
[2020-11-26] MEDS: NOREPINEPHRINE 32 MG in DEXT 5% WATER 218 ML IV PRN (16:32)
[2020-11-26] MEDS: ACETAMINOPHEN 325MG TABLET PO PRN (23:20)
[2020-11-27] VITALS (83 sets, daily range): BP systolic 44–175; BP diastolic 24–117
[2020-11-27] MEDS: GABAPENTIN 100MG CAPSULE PO SCH ×3 (05:35→21:16)
[2020-11-27 06:15] LABS: HEMOGLOBIN. 11.5 g/dL (12.0-16.0); MEAN CORPUSCULAR HEMOGLOBIN 29.6 pg (28.0-32.0); MEAN CORPUSCULAR VOLUME 90.5 fL (81.0-99.0); MEAN PLATELET VOLUME 10.4 fl (7.4-10.4); PLATELET 258 x1000/uL (130-400); RED BLOOD CELL COUNT 3.87 mill/uL (4.2-5.4); RED CELL DISTRIBUTION WIDTH 14.9 % (11.6-14.6)
[2020-11-27] MEDS: BLOOD SUGAR DIAGNOSTIC STRIP TEST SCH ×4 (06:35→21:06)
[2020-11-27] MEDS: INSULIN LISPRO 100 UNITS/ML SUBCUT SCH ×4 (08:00→21:00)
[2020-11-27] MEDS: MIDODRINE HCL 5MG TABLET PO SCH ×3 (08:47→16:53)
[2020-11-27 12:23] LABS: PLATELET ESTIMATE NORMAL
[2020-11-27] MEDS ORDERED: LORAZEPAM 2MG/ML CPJ IV PRN (18:30)
[2020-11-27] MEDS: NOREPINEPHRINE 32 MG in DEXT 5% WATER 218 ML IV PRN (21:09)
[2020-11-28] VITALS (99 sets, daily range): BP systolic 48–202; BP diastolic 18–143
[2020-11-28] MEDS: NOREPINEPHRINE 32 MG in DEXT 5% WATER 218 ML IV PRN (04:18)
[2020-11-28] MEDS: GABAPENTIN 100MG CAPSULE PO SCH ×3 (05:08→22:34)
[2020-11-28 06:43] LABS: HEMATOCRIT. 30.5 % (36.0-48.0); HEMOGLOBIN. 9.9 g/dL (12.0-16.0); MEAN CORPUSCULAR HEMOGLOBIN 30.1 pg (28.0-32.0); MEAN CORPUSCULAR VOLUME 92.7 fL (81.0-99.0); MEAN PLATELET VOLUME 10.3 fl (7.4-10.4); PLATELET 252 x1000/uL (130-400); RED BLOOD CELL COUNT 3.29 mill/uL (4.2-5.4)
[2020-11-28] MEDS: BLOOD SUGAR DIAGNOSTIC STRIP TEST SCH ×4 (07:35→21:00)
[2020-11-28] MEDS: INSULIN LISPRO 100 UNITS/ML SUBCUT SCH ×4 (07:36→22:04)
[2020-11-28] MEDS: MIDODRINE HCL 5MG TABLET PO SCH ×3 (09:28→17:28)
[2020-11-28] MEDS: INSULIN GLARGINE UD 100 UNITS/ML SYR SUBCUT SCH ×2 (09:53→22:37)
[2020-11-28 21:51] LABS: PLATELET ESTIMATE NORMAL
[2020-11-28] MEDS: LEVETIRACETAM 500MG PREMIX 100 ML IV SCH (22:02)
[2020-11-29] VITALS (104 sets, daily range): BP systolic 45–166; BP diastolic 16–105
[2020-11-29] MEDS: GABAPENTIN 100MG CAPSULE PO SCH ×3 (06:12→21:46)
[2020-11-29] MEDS: NOREPINEPHRINE 32 MG in DEXT 5% WATER 218 ML IV PRN (06:15)
[2020-11-29] MEDS: BLOOD SUGAR DIAGNOSTIC STRIP TEST SCH ×4 (07:30→21:00)
[2020-11-29 07:39] LABS: HEMATOCRIT. 28.4 % (36.0-48.0); HEMOGLOBIN. 9.4 g/dL (12.0-16.0); MEAN CORPUSCULAR HEMOGLOBIN 30.3 pg (28.0-32.0); MEAN CORPUSCULAR VOLUME 91.3 fL (81.0-99.0); MEAN PLATELET VOLUME 10.5 fl (7.4-10.4); PLATELET 276 x1000/uL (130-400); RED BLOOD CELL COUNT 3.11 mill/uL (4.2-5.4); RED CELL DISTRIBUTION WIDTH 14.7 % (11.6-14.6)
[2020-11-29] MEDS: LEVETIRACETAM 500MG PREMIX 100 ML IV SCH ×2 (09:48→21:46)
[2020-11-29] MEDS: MIDODRINE HCL 5MG TABLET PO SCH ×2 (09:49→17:56)
[2020-11-29] MEDS: INSULIN GLARGINE UD 100 UNITS/ML SYR SUBCUT SCH ×2 (09:50→21:48)
[2020-11-29] MEDS: INSULIN LISPRO 100 UNITS/ML SUBCUT SCH ×4 (09:51→21:47)
[2020-11-29 23:32] LABS: PLATELET ESTIMATE NORMAL
[2020-11-30] VITALS (91 sets, daily range): BP systolic 54–182; BP diastolic 23–120
[2020-11-30] MEDS: DEXTROSE 50% WATER 50ML SYRINGE IV PRN (02:49)
[2020-11-30] MEDS: GABAPENTIN 100MG CAPSULE PO SCH ×3 (06:02→21:00)
[2020-11-30 07:01] LABS: HEMATOCRIT. 31.2 % (36.0-48.0); MEAN CORPUSCULAR HEMOGLOBIN 29.4 pg (28.0-32.0); MEAN CORPUSCULAR VOLUME 91.9 fL (81.0-99.0); PLATELET 281 x1000/uL (130-400); RED CELL DISTRIBUTION WIDTH 14.9 % (11.6-14.6)
[2020-11-30] MEDS: BLOOD SUGAR DIAGNOSTIC STRIP TEST SCH ×4 (08:21→20:54)
[2020-11-30] MEDS: LEVETIRACETAM 500MG PREMIX 100 ML IV SCH ×2 (08:27→21:00)
[2020-11-30] MEDS: INSULIN LISPRO 100 UNITS/ML SUBCUT SCH ×4 (08:28→20:54)
[2020-11-30] MEDS: MIDODRINE HCL 5MG TABLET PO SCH ×3 (08:30→17:55)
[2020-11-30] MEDS: INSULIN GLARGINE UD 100 UNITS/ML SYR SUBCUT SCH ×2 (11:18→21:01)
[2020-11-30 12:54] LABS: PLATELET ESTIMATE NORMAL
[2020-11-30] MEDS: NOREPINEPHRINE 32 MG in DEXT 5% WATER 218 ML IV PRN (15:48)
[2020-11-30] MEDS ORDERED: ALBUMIN HUMAN 12.5G/250ML (5%) IV NR (18:30)
[2020-12-01] VITALS (76 sets, daily range): BP systolic 48–179; BP diastolic 13–96
[2020-12-01] MEDS: GABAPENTIN 100MG CAPSULE PO SCH ×3 (05:29→21:25)
[2020-12-01 06:27] LABS: HEMATOCRIT. 27.2 % (36.0-48.0); HEMOGLOBIN. 8.7 g/dL (12.0-16.0); MEAN CORPUSCULAR HEMOGLOBIN 29.3 pg (28.0-32.0); MEAN CORPUSCULAR VOLUME 91.9 fL (81.0-99.0); MEAN PLATELET VOLUME 10.1 fl (7.4-10.4); PLATELET 278 x1000/uL (130-400); RED BLOOD CELL COUNT 2.96 mill/uL (4.2-5.4); RED CELL DISTRIBUTION WIDTH 15.2 % (11.6-14.6)
[2020-12-01] MEDS: MIDODRINE HCL 5MG TABLET PO SCH ×3 (08:41→17:00)
[2020-12-01] MEDS: INSULIN LISPRO 100 UNITS/ML SUBCUT SCH ×4 (08:45→21:42)
[2020-12-01] MEDS: BLOOD SUGAR DIAGNOSTIC STRIP TEST SCH ×4 (08:45→21:33)
[2020-12-01] MEDS: LEVETIRACETAM 500MG PREMIX 100 ML IV SCH ×2 (09:00→21:25)
[2020-12-01] MEDS: INSULIN GLARGINE UD 100 UNITS/ML SYR SUBCUT SCH ×2 (10:00→21:43)
[2020-12-01] MEDS: SODIUM CHLORIDE 0.9% 1,000 ML IV SCH (10:30)
[2020-12-01 14:24] LABS: PLATELET ESTIMATE NORMAL
[2020-12-01] MEDS ORDERED: CEFTRIAXONE 2 G PREMIX 50 ML IV SCH (19:45)
[2020-12-01] MEDS ORDERED: VANCOMYCIN 1500MG in DEXTROSE 5% WATER 250ML IV NR (22:00)
[2020-12-01] MEDS: CEFTRIAXONE 2 G in DEXTROSE 5% WATER 50 ML IV SCH (23:45)
[2020-12-02] VITALS (73 sets, daily range): BP systolic 59–154; BP diastolic 22–96
[2020-12-02] MEDS: SODIUM CHLORIDE 0.9% 1,000 ML IV SCH (06:19)
[2020-12-02] MEDS: GABAPENTIN 100MG CAPSULE PO SCH ×3 (06:19→20:26)
[2020-12-02 06:38] LABS: HEMATOCRIT. 24.8 % (36.0-48.0); HEMOGLOBIN. 7.9 g/dL (12.0-16.0); MEAN CORPUSCULAR HEMOGLOBIN 29.2 pg (28.0-32.0); MEAN CORPUSCULAR VOLUME 91.1 fL (81.0-99.0); MEAN PLATELET VOLUME 9.9 fl (7.4-10.4); PLATELET 258 x1000/uL (130-400); RED BLOOD CELL COUNT 2.72 mill/uL (4.2-5.4); RED CELL DISTRIBUTION WIDTH 14.9 % (11.6-14.6)
[2020-12-02] MEDS: BLOOD SUGAR DIAGNOSTIC STRIP TEST SCH ×4 (07:30→21:00)
[2020-12-02] MEDS: INSULIN LISPRO 100 UNITS/ML SUBCUT SCH ×4 (08:00→21:00)
[2020-12-02] MEDS: MIDODRINE HCL 5MG TABLET PO SCH ×3 (09:00→17:00)
[2020-12-02] MEDS: LEVETIRACETAM 500MG PREMIX 100 ML IV SCH ×2 (09:00→21:21)
[2020-12-02] MEDS: INSULIN GLARGINE UD 100 UNITS/ML SYR SUBCUT SCH ×2 (10:00→22:21)
[2020-12-02 13:52] LABS: PLATELET ESTIMATE NORMAL
[2020-12-02] MEDS: CEFTRIAXONE 2 G in DEXTROSE 5% WATER 50 ML IV SCH (20:26)
[2020-12-02] MEDS: LEVETIRACETAM 500MG TABLET PO SCH (21:00)
[2020-12-03] VITALS (89 sets, daily range): BP systolic 73–168; BP diastolic 23–106
[2020-12-03 06:10] LABS: HEMATOCRIT. 23.7 % (36.0-48.0); HEMOGLOBIN. 7.7 g/dL (12.0-16.0); MEAN CORPUSCULAR HEMOGLOBIN 29.7 pg (28.0-32.0); MEAN CORPUSCULAR VOLUME 92.1 fL (81.0-99.0); PLATELET 214 x1000/uL (130-400); RED BLOOD CELL COUNT 2.58 mill/uL (4.2-5.4)
[2020-12-03] MEDS: GABAPENTIN 100MG CAPSULE PO SCH ×3 (06:45→21:51)
[2020-12-03] MEDS: BLOOD SUGAR DIAGNOSTIC STRIP TEST SCH ×4 (06:55→21:58)
[2020-12-03] MEDS: INSULIN LISPRO 100 UNITS/ML SUBCUT SCH ×4 (06:57→22:13)
[2020-12-03] MEDS: LEVETIRACETAM 500MG TABLET PO SCH ×2 (08:18→21:51)
[2020-12-03] MEDS: MIDODRINE HCL 5MG TABLET PO SCH ×3 (08:19→17:00)
[2020-12-03] MEDS: INSULIN GLARGINE UD 100 UNITS/ML SYR SUBCUT SCH ×2 (10:00→22:07)
[2020-12-03 13:25] LABS: PLATELET ESTIMATE NORMAL
[2020-12-03] MEDS: CEFTRIAXONE 2 G in DEXTROSE 5% WATER 50 ML IV SCH (21:38)
[2020-12-03] MEDS: EPOETIN ALFA-EPBX 10,000 UNIT/ML VIAL SUBCUT SCH (21:52)
[2020-12-04] VITALS (83 sets, daily range): BP systolic 56–150; BP diastolic 22–81
[2020-12-04] MEDS: GABAPENTIN 100MG CAPSULE PO SCH ×3 (06:02→22:38)
[2020-12-04 06:04] LABS: HEMATOCRIT. 23.3 % (36.0-48.0); HEMOGLOBIN. 7.5 g/dL (12.0-16.0); MEAN CORPUSCULAR HEMOGLOBIN 29.9 pg (28.0-32.0); MEAN CORPUSCULAR VOLUME 92.5 fL (81.0-99.0); MEAN PLATELET VOLUME 10.4 fl (7.4-10.4); PLATELET 235 x1000/uL (130-400); RED BLOOD CELL COUNT 2.52 mill/uL (4.2-5.4)
[2020-12-04] MEDS: BLOOD SUGAR DIAGNOSTIC STRIP TEST SCH ×4 (06:08→22:00)
[2020-12-04] MEDS: INSULIN LISPRO 100 UNITS/ML SUBCUT SCH ×4 (06:09→22:00)
[2020-12-04] MEDS: MIDODRINE HCL 5MG TABLET PO SCH ×3 (08:56→17:00)
[2020-12-04] MEDS: LEVETIRACETAM 500MG TABLET PO SCH ×2 (08:56→20:07)
[2020-12-04] MEDS: INSULIN GLARGINE UD 100 UNITS/ML SYR SUBCUT SCH ×2 (10:00→22:38)
[2020-12-04 10:51] LABS: NUCLEATED RED BLOOD CELLS 1 /100 WBC; PLATELET ESTIMATE NORMAL
[2020-12-04] MEDS ORDERED: VANCOMYCIN 750 MG PREMIX 150 ML IV SCH (17:00)
[2020-12-04] MEDS: CEFTRIAXONE 2 G in DEXTROSE 5% WATER 50 ML IV SCH (20:07)
[2020-12-05 04:00] VITALS: BP 129/55
[2020-12-05] MEDS: SODIUM CHLORIDE 0.9% 1,000 ML IV SCH (04:17)
[2020-12-05] MEDS: GABAPENTIN 100MG CAPSULE PO SCH ×3 (06:15→21:22)
[2020-12-05] MEDS: BLOOD SUGAR DIAGNOSTIC STRIP TEST SCH ×4 (06:45→20:32)
[2020-12-05] MEDS: INSULIN LISPRO 100 UNITS/ML SUBCUT SCH ×4 (07:15→20:32)
[2020-12-05 08:00] VITALS: BP 130/31
[2020-12-05] MEDS: MIDODRINE HCL 5MG TABLET PO SCH ×3 (08:30→17:25)
[2020-12-05] MEDS: LEVETIRACETAM 500MG TABLET PO SCH ×2 (08:30→20:31)
[2020-12-05] MEDS: INSULIN GLARGINE UD 100 UNITS/ML SYR SUBCUT SCH ×2 (10:07→21:22)
[2020-12-05 10:13] LABS: HEMATOCRIT. 23.2 % (36.0-48.0); HEMOGLOBIN. 7.5 g/dL (12.0-16.0); MEAN CORPUSCULAR HEMOGLOBIN 29.8 pg (28.0-32.0); MEAN CORPUSCULAR VOLUME 92.9 fL (81.0-99.0); MEAN PLATELET VOLUME 10.3 fl (7.4-10.4); PLATELET 204 x1000/uL (130-400); RED CELL DISTRIBUTION WIDTH 15.3 % (11.6-14.6)
[2020-12-05 12:00] VITALS: BP 127/58
[2020-12-05 16:00] VITALS: BP 145/54
[2020-12-05 20:00] VITALS: BP 110/49
[2020-12-05] MEDS: CEFTRIAXONE 2 G in DEXTROSE 5% WATER 50 ML IV SCH (20:20)
[2020-12-05] MEDS: EPOETIN ALFA-EPBX 10,000 UNIT/ML VIAL SUBCUT SCH (20:21)
[2020-12-05 23:04] LABS: PLATELET ESTIMATE NORMAL
[2020-12-06] VITALS (7 sets, daily range): BP systolic 111–151; BP diastolic 55–87
[2020-12-06] MEDS: GABAPENTIN 100MG CAPSULE PO SCH ×3 (05:07→21:24)
[2020-12-06] MEDS: BLOOD SUGAR DIAGNOSTIC STRIP TEST SCH ×4 (05:08→20:30)
[2020-12-06] MEDS: INSULIN LISPRO 100 UNITS/ML SUBCUT SCH ×4 (05:11→20:30)
[2020-12-06 06:31] LABS: HEMATOCRIT. 25.2 % (36.0-48.0); HEMOGLOBIN. 8.2 g/dL (12.0-16.0); MEAN CORPUSCULAR HEMOGLOBIN 29.7 pg (28.0-32.0); MEAN CORPUSCULAR VOLUME 91.7 fL (81.0-99.0); MEAN PLATELET VOLUME 10.1 fl (7.4-10.4); PLATELET 220 x1000/uL (130-400); RED BLOOD CELL COUNT 2.75 mill/uL (4.2-5.4); RED CELL DISTRIBUTION WIDTH 15.1 % (11.6-14.6)
[2020-12-06] MEDS: LEVETIRACETAM 500MG TABLET PO SCH ×2 (09:01→21:24)
[2020-12-06] MEDS: MIDODRINE HCL 5MG TABLET PO SCH ×3 (09:01→17:00)
[2020-12-06] MEDS: INSULIN GLARGINE UD 100 UNITS/ML SYR SUBCUT SCH ×2 (10:59→22:00)
[2020-12-06 13:23] LABS: PLATELET ESTIMATE NORMAL
[2020-12-06] MEDS: CEFTRIAXONE 2 G in DEXTROSE 5% WATER 50 ML IV SCH (20:55)
[2020-12-07] VITALS: BP 117/63
[2020-12-07 04:00] VITALS: BP 122/80
[2020-12-07] MEDS: GABAPENTIN 100MG CAPSULE PO SCH ×3 (05:03→21:31)
[2020-12-07] MEDS: BLOOD SUGAR DIAGNOSTIC STRIP TEST SCH ×4 (05:30→21:51)
[2020-12-07] MEDS: DEXTROSE 50% WATER 50ML SYRINGE IV PRN ×2 (05:34→21:42)
[2020-12-07] MEDS: INSULIN LISPRO 100 UNITS/ML SUBCUT SCH ×4 (06:39→21:00)
[2020-12-07 08:00] VITALS: BP 101/83
[2020-12-07 08:29] LABS: HEMATOCRIT. 25.2 % (36.0-48.0); HEMOGLOBIN. 8.1 g/dL (12.0-16.0); MEAN CORPUSCULAR HEMOGLOBIN 29.6 pg (28.0-32.0); MEAN CORPUSCULAR VOLUME 92.4 fL (81.0-99.0); MEAN PLATELET VOLUME 9.7 fl (7.4-10.4); PLATELET 216 x1000/uL (130-400); RED BLOOD CELL COUNT 2.73 mill/uL (4.2-5.4); RED CELL DISTRIBUTION WIDTH 15.2 % (11.6-14.6)
[2020-12-07] MEDS: MIDODRINE HCL 5MG TABLET PO SCH ×3 (09:34→18:03)
[2020-12-07] MEDS: LEVETIRACETAM 500MG TABLET PO SCH ×2 (09:34→21:31)
[2020-12-07] MEDS: INSULIN GLARGINE UD 100 UNITS/ML SYR SUBCUT SCH ×2 (10:00→21:52)
[2020-12-07 11:17] LABS: BG BASE EXCESS -2.5 mmol/L (-2.0-2.0); BG FRACTION INSPIRED OXYGEN 36; BG HCO3 ACT 25.4 mmol/L (22.0-26.0); BG METHEMOGLOBIN 0.2 % (0.0-1.5); BG OXYHEMOGLOBIN 95.8 % (94.0-97.0); BG PH 7.231 (7.350-7.450); BG PO2 92.5 mmHg (75.0-100.0); BG SAMPLE SITE RIGHT BRACHIAL; BG VENT MODE NASAL CANNULA
[2020-12-07 12:00] VITALS: BP 150/71
[2020-12-07 12:35] LABS: PLATELET ESTIMATE NORMAL
[2020-12-07 14:41] LABS: BG BASE EXCESS -3.4 mmol/L (-2.0-2.0); BG CARBOXYHEMOGLOBIN 0.3 % (0.5-1.5); BG DEOXYHEMOGLOBIN 0.7 % (0.0-5.0); BG FRACTION INSPIRED OXYGEN 50; BG HCO3 ACT 23.8 mmol/L (22.0-26.0); BG METHEMOGLOBIN 0.2 % (0.0-1.5); BG OXYGEN SATURATION 99.3 % (92.0-98.5); BG OXYHEMOGLOBIN 98.8 % (94.0-97.0); BG PCO2 54.7 mmHg (35.0-45.0); BG PH 7.257 (7.350-7.450); BG PO2 225.5 mmHg (75.0-100.0); BG SAMPLE SITE RIGHT BRACHIAL; BG TOTAL HEMOGLOBIN 8.9 g/dL (12.0-18.0); BG VENT MODE MASK - BIPAP
[2020-12-07] MEDS: IPRATROPIUM/ALBUTEROL 0.5-3(2.5)MG/3ML NEB HHN SCH ×2 (15:26→21:36)
[2020-12-07 16:00] VITALS: BP 130/53
[2020-12-07] MEDS: CEFTRIAXONE 2 G in DEXTROSE 5% WATER 50 ML IV SCH (21:32)
[2020-12-08] VITALS (13 sets, daily range): BP systolic 106–158; BP diastolic 39–144
[2020-12-08] MEDS: IPRATROPIUM/ALBUTEROL 0.5-3(2.5)MG/3ML NEB HHN SCH ×5 (02:44→20:08)
[2020-12-08] MEDS: DEXTROSE 50% WATER 50ML SYRINGE IV PRN ×2 (06:16→13:13)
[2020-12-08] MEDS: BLOOD SUGAR DIAGNOSTIC STRIP TEST SCH ×4 (06:16→21:00)
[2020-12-08] MEDS: GABAPENTIN 100MG CAPSULE PO SCH ×3 (06:16→21:31)
[2020-12-08] MEDS: INSULIN LISPRO 100 UNITS/ML SUBCUT SCH ×4 (06:17→21:00)
[2020-12-08 10:14] LABS: BG BASE EXCESS 1.3 mmol/L (-2.0-2.0); BG CARBOXYHEMOGLOBIN 0.1 % (0.5-1.5); BG DEOXYHEMOGLOBIN 0.5 % (0.0-5.0); BG FRACTION INSPIRED OXYGEN 50; BG HCO3 ACT 27.6 mmol/L (22.0-26.0); BG METHEMOGLOBIN 0.2 % (0.0-1.5); BG OXYGEN SATURATION 99.5 % (92.0-98.5); BG OXYHEMOGLOBIN 99.2 % (94.0-97.0); BG PCO2 52.6 mmHg (35.0-45.0); BG PH 7.337 (7.350-7.450); BG PO2 252.4 mmHg (75.0-100.0); BG SAMPLE SITE RIGHT RADIAL; BG TOTAL HEMOGLOBIN 8.7 g/dL (12.0-18.0); BG VENT MODE MASK - BIPAP
[2020-12-08 13:00] LABS: HEMATOCRIT. 26.7 % (36.0-48.0); HEMOGLOBIN. 8.6 g/dL (12.0-16.0); MEAN CORPUSCULAR HEMOGLOBIN 29.9 pg (28.0-32.0); MEAN CORPUSCULAR VOLUME 93.3 fL (81.0-99.0); MEAN PLATELET VOLUME 9.3 fl (7.4-10.4); PLATELET 204 x1000/uL (130-400); RED BLOOD CELL COUNT 2.86 mill/uL (4.2-5.4); RED CELL DISTRIBUTION WIDTH 15.4 % (11.6-14.6)
[2020-12-08] MEDS: MIDODRINE HCL 5MG TABLET PO SCH ×3 (13:00→23:14)
[2020-12-08] MEDS ORDERED: LEVETIRACETAM 500 MG in SODIUM CHLORIDE 0.9% 100 ML IV SCH (13:30)
[2020-12-08 15:12] LABS: PLATELET ESTIMATE NORMAL
[2020-12-08] MEDS: LEVETIRACETAM 500MG PREMIX 100 ML IV SCH ×2 (16:42→23:13)
[2020-12-08] MEDS: CEFTRIAXONE 2 G in DEXTROSE 5% WATER 50 ML IV SCH (21:31)
[2020-12-08] MEDS: EPOETIN ALFA-EPBX 10,000 UNIT/ML VIAL SUBCUT SCH (21:31)
[2020-12-09] VITALS (22 sets, daily range): BP systolic 55–154; BP diastolic 17–93
[2020-12-09] MEDS: IPRATROPIUM/ALBUTEROL 0.5-3(2.5)MG/3ML NEB HHN SCH ×5 (00:12→20:58)
[2020-12-09] MEDS: ACETAMINOPHEN 325MG TABLET PO PRN (03:11)
[2020-12-09] MEDS: GABAPENTIN 100MG CAPSULE PO SCH ×3 (06:05→21:22)
[2020-12-09] MEDS: MIDODRINE HCL 5MG TABLET PO SCH ×3 (06:05→21:23)
[2020-12-09 06:40] LABS: HEMATOCRIT. 24.1 % (36.0-48.0); MEAN CORPUSCULAR HEMOGLOBIN 30.9 pg (28.0-32.0); MEAN CORPUSCULAR VOLUME 92.4 fL (81.0-99.0); MEAN PLATELET VOLUME 9.8 fl (7.4-10.4); PLATELET 175 x1000/uL (130-400); RED BLOOD CELL COUNT 2.61 mill/uL (4.2-5.4); RED CELL DISTRIBUTION WIDTH 15.7 % (11.6-14.6)
[2020-12-09] MEDS: BLOOD SUGAR DIAGNOSTIC STRIP TEST SCH ×4 (07:30→20:48)
[2020-12-09] MEDS: INSULIN LISPRO 100 UNITS/ML SUBCUT SCH ×4 (08:00→20:57)
[2020-12-09] MEDS: LEVETIRACETAM 500MG PREMIX 100 ML IV SCH ×2 (09:00→20:28)
[2020-12-09 11:37] LABS: PLATELET ESTIMATE NORMAL
[2020-12-09] MEDS: CEFTRIAXONE 2 G in DEXTROSE 5% WATER 50 ML IV SCH (20:12)
[2020-12-10] VITALS (11 sets, daily range): BP systolic 93–151; BP diastolic 44–65
[2020-12-10] MEDS: IPRATROPIUM/ALBUTEROL 0.5-3(2.5)MG/3ML NEB HHN SCH ×6 (00:37→20:56)
[2020-12-10] MEDS: GABAPENTIN 100MG CAPSULE PO SCH ×4 (04:58→21:30)
[2020-12-10] MEDS: MIDODRINE HCL 5MG TABLET PO SCH ×3 (05:41→22:00)
[2020-12-10 05:53] LABS: HEMATOCRIT. 23.5 % (36.0-48.0); HEMOGLOBIN. 7.8 g/dL (12.0-16.0); MEAN CORPUSCULAR HEMOGLOBIN 30.2 pg (28.0-32.0); MEAN CORPUSCULAR VOLUME 91.6 fL (81.0-99.0); MEAN PLATELET VOLUME 9.8 fl (7.4-10.4); PLATELET 185 x1000/uL (130-400); RED BLOOD CELL COUNT 2.56 mill/uL (4.2-5.4); RED CELL DISTRIBUTION WIDTH 15.8 % (11.6-14.6)
[2020-12-10] MEDS: BLOOD SUGAR DIAGNOSTIC STRIP TEST SCH ×4 (07:30→21:42)
[2020-12-10] MEDS: INSULIN LISPRO 100 UNITS/ML SUBCUT SCH ×5 (08:00→22:25)
[2020-12-10] MEDS: LEVETIRACETAM 500MG PREMIX 100 ML IV SCH ×2 (08:35→21:29)
[2020-12-10 14:12] LABS: PLATELET ESTIMATE NORMAL
[2020-12-10 18:37] LABS: BG BASE EXCESS 0.9 mmol/L (-2.0-2.0); BG CARBOXYHEMOGLOBIN 0.4 % (0.5-1.5); BG DEOXYHEMOGLOBIN 3.2 % (0.0-5.0); BG FRACTION INSPIRED OXYGEN 28; BG METHEMOGLOBIN 0.1 % (0.0-1.5); BG OXYGEN SATURATION 96.8 % (92.0-98.5); BG OXYHEMOGLOBIN 96.3 % (94.0-97.0); BG PCO2 50.4 mmHg (35.0-45.0); BG PH 7.346 (7.350-7.450); BG PO2 94.8 mmHg (75.0-100.0); BG SAMPLE SITE RIGHT RADIAL; BG TOTAL HEMOGLOBIN 8.6 g/dL (12.0-18.0); BG VENT MODE OXYGENATOR
[2020-12-10] MEDS: CEFTRIAXONE 2 G in DEXTROSE 5% WATER 50 ML IV SCH (21:29)
[2020-12-10] MEDS: ACETAMINOPHEN 325MG TABLET PO PRN (21:31)
[2020-12-11] VITALS (10 sets, daily range): BP systolic 103–149; BP diastolic 38–88
[2020-12-11] MEDS: IPRATROPIUM/ALBUTEROL 0.5-3(2.5)MG/3ML NEB HHN SCH ×6 (00:33→20:41)
[2020-12-11] MEDS: MIDODRINE HCL 5MG TABLET PO SCH ×3 (05:54→22:02)
[2020-12-11] MEDS: GABAPENTIN 100MG CAPSULE PO SCH ×3 (05:55→21:57)
[2020-12-11 06:54] LABS: HEMATOCRIT. 22.3 % (36.0-48.0); HEMOGLOBIN. 7.3 g/dL (12.0-16.0); MEAN CORPUSCULAR VOLUME 92.2 fL (81.0-99.0); MEAN PLATELET VOLUME 9.4 fl (7.4-10.4); PLATELET 160 x1000/uL (130-400); RED BLOOD CELL COUNT 2.42 mill/uL (4.2-5.4); RED CELL DISTRIBUTION WIDTH 15.5 % (11.6-14.6)
[2020-12-11] MEDS: BLOOD SUGAR DIAGNOSTIC STRIP TEST SCH ×4 (07:30→21:44)
[2020-12-11] MEDS: INSULIN LISPRO 100 UNITS/ML SUBCUT SCH ×4 (08:00→21:55)
[2020-12-11] MEDS: LEVETIRACETAM 500MG PREMIX 100 ML IV SCH ×2 (10:48→21:44)
[2020-12-11 14:29] LABS: NUCLEATED RED BLOOD CELLS 1 /100 WBC; PLATELET ESTIMATE NORMAL
[2020-12-11] MEDS: CEFTRIAXONE 2 G in DEXTROSE 5% WATER 50 ML IV SCH (21:44)
[2020-12-12] VITALS (8 sets, daily range): BP systolic 72–145; BP diastolic 45–90
[2020-12-12] MEDS: IPRATROPIUM/ALBUTEROL 0.5-3(2.5)MG/3ML NEB HHN SCH ×6 (00:29→21:02)
[2020-12-12] MEDS: GABAPENTIN 100MG CAPSULE PO SCH ×3 (06:50→22:34)
[2020-12-12] MEDS: MIDODRINE HCL 5MG TABLET PO SCH ×3 (06:50→22:35)
[2020-12-12 07:21] LABS: HEMATOCRIT. 23.6 % (36.0-48.0); HEMOGLOBIN. 7.7 g/dL (12.0-16.0); MEAN CORPUSCULAR HEMOGLOBIN 29.8 pg (28.0-32.0); MEAN CORPUSCULAR VOLUME 91.3 fL (81.0-99.0); MEAN PLATELET VOLUME 8.9 fl (7.4-10.4); PLATELET 161 x1000/uL (130-400); RED BLOOD CELL COUNT 2.59 mill/uL (4.2-5.4); RED CELL DISTRIBUTION WIDTH 15.8 % (11.6-14.6)
[2020-12-12] MEDS: INSULIN LISPRO 100 UNITS/ML SUBCUT SCH ×4 (08:00→21:00)
[2020-12-12] MEDS: BLOOD SUGAR DIAGNOSTIC STRIP TEST SCH ×4 (08:15→21:00)
[2020-12-12] MEDS: LEVETIRACETAM 500MG PREMIX 100 ML IV SCH ×2 (09:09→22:33)
[2020-12-12 19:24] LABS: PLATELET ESTIMATE NORMAL
[2020-12-12] MEDS: CEFTRIAXONE 2 G in DEXTROSE 5% WATER 50 ML IV SCH (22:33)
[2020-12-13] VITALS (8 sets, daily range): BP systolic 104–198; BP diastolic 49–101
[2020-12-13] MEDS: IPRATROPIUM/ALBUTEROL 0.5-3(2.5)MG/3ML NEB HHN SCH ×6 (00:30→20:01)
[2020-12-13 05:52] LABS: HEMATOCRIT. 24.1 % (36.0-48.0); HEMOGLOBIN. 7.7 g/dL (12.0-16.0); MEAN CORPUSCULAR HEMOGLOBIN 29.8 pg (28.0-32.0); MEAN CORPUSCULAR VOLUME 93.6 fL (81.0-99.0); RED BLOOD CELL COUNT 2.58 mill/uL (4.2-5.4); RED CELL DISTRIBUTION WIDTH 15.9 % (11.6-14.6)
[2020-12-13] MEDS: GABAPENTIN 100MG CAPSULE PO SCH ×3 (06:28→21:38)
[2020-12-13] MEDS: MIDODRINE HCL 5MG TABLET PO SCH ×3 (06:29→21:38)
[2020-12-13] MEDS: INSULIN LISPRO 100 UNITS/ML SUBCUT SCH ×4 (08:00→21:38)
[2020-12-13] MEDS: BLOOD SUGAR DIAGNOSTIC STRIP TEST SCH ×4 (08:04→21:23)
[2020-12-13] MEDS: LEVETIRACETAM 500MG PREMIX 100 ML IV SCH ×2 (08:27→21:38)
[2020-12-13 12:18] LABS: PLATELET ESTIMATE NORMAL
[2020-12-13 12:19] LABS: PLATELET 164 x1000/uL (130-400)
[2020-12-14] MEDS: IPRATROPIUM/ALBUTEROL 0.5-3(2.5)MG/3ML NEB HHN SCH ×6 (00:19→20:19)
[2020-12-14 04:00] VITALS: BP 141/77
[2020-12-14 05:58] LABS: HEMATOCRIT. 23.9 % (36.0-48.0); HEMOGLOBIN. 7.7 g/dL (12.0-16.0); MEAN CORPUSCULAR HEMOGLOBIN 29.7 pg (28.0-32.0); MEAN CORPUSCULAR VOLUME 92.6 fL (81.0-99.0); MEAN PLATELET VOLUME 9.1 fl (7.4-10.4); PLATELET 147 x1000/uL (130-400); RED BLOOD CELL COUNT 2.59 mill/uL (4.2-5.4)
[2020-12-14] MEDS: MIDODRINE HCL 5MG TABLET PO SCH ×3 (06:01→21:37)
[2020-12-14] MEDS: GABAPENTIN 100MG CAPSULE PO SCH ×3 (06:01→21:37)
[2020-12-14] MEDS: BLOOD SUGAR DIAGNOSTIC STRIP TEST SCH ×4 (07:30→21:35)
[2020-12-14 08:00] VITALS: BP 122/71
[2020-12-14] MEDS: LEVETIRACETAM 500MG PREMIX 100 ML IV SCH (09:26)
[2020-12-14] MEDS: INSULIN LISPRO 100 UNITS/ML SUBCUT SCH ×4 (09:56→21:00)
[2020-12-14 12:00] VITALS: BP 155/70
[2020-12-14 12:50] LABS: PLATELET ESTIMATE NORMAL
[2020-12-14 16:00] VITALS: BP 136/92
[2020-12-14] MEDS ORDERED: ONDANSETRON HCL 4MG TABLET PO PRN (18:45)
[2020-12-14] MEDS ORDERED: ONDANSETRON 4MG ODT PO PRN (19:00)
[2020-12-14 20:39] VITALS: BP 137/68
[2020-12-14] MEDS: LEVETIRACETAM 500MG TABLET PO SCH (21:37)
[2020-12-15] VITALS (7 sets, daily range): BP systolic 95–172; BP diastolic 61–103
[2020-12-15] MEDS: IPRATROPIUM/ALBUTEROL 0.5-3(2.5)MG/3ML NEB HHN SCH ×6 (00:43→21:31)
[2020-12-15] MEDS: MIDODRINE HCL 5MG TABLET PO SCH ×3 (05:05→21:56)
[2020-12-15] MEDS: GABAPENTIN 100MG CAPSULE PO SCH ×3 (05:07→21:55)
[2020-12-15] MEDS: INSULIN LISPRO 100 UNITS/ML SUBCUT SCH ×4 (08:00→21:00)
[2020-12-15] MEDS: BLOOD SUGAR DIAGNOSTIC STRIP TEST SCH ×4 (08:04→21:55)
[2020-12-15] MEDS: LEVETIRACETAM 500MG TABLET PO SCH ×2 (08:37→21:55)
[2020-12-15] MEDS ORDERED: MIDODRINE HCL 5MG TABLET PO NR (10:10)
[2020-12-15] MEDS ORDERED: CEFTRIAXONE 2 G PREMIX 50 ML IV SCH (20:00)
[2020-12-15] MEDS: CEFTRIAXONE 2 G in DEXTROSE 5% WATER 50 ML IV SCH (21:55)
[2020-12-16] VITALS (7 sets, daily range): BP systolic 137–165; BP diastolic 50–89
[2020-12-16] MEDS: IPRATROPIUM/ALBUTEROL 0.5-3(2.5)MG/3ML NEB HHN SCH ×3 (00:17→14:50)
[2020-12-16] MEDS: GABAPENTIN 100MG CAPSULE PO SCH ×3 (06:37→21:00)
[2020-12-16] MEDS: MIDODRINE HCL 5MG TABLET PO SCH ×3 (06:43→21:00)
[2020-12-16 06:52] LABS: MEAN CORPUSCULAR HEMOGLOBIN 30.3 pg (28.0-32.0); MEAN CORPUSCULAR VOLUME 95.1 fL (81.0-99.0); MEAN PLATELET VOLUME 9.7 fl (7.4-10.4); PLATELET 147 x1000/uL (130-400); RED BLOOD CELL COUNT 2.63 mill/uL (4.2-5.4)
[2020-12-16] MEDS: BLOOD SUGAR DIAGNOSTIC STRIP TEST SCH (07:30)
[2020-12-16] MEDS: INSULIN LISPRO 100 UNITS/ML SUBCUT SCH ×4 (08:00→20:59)
[2020-12-16] MEDS ORDERED: *PATIENT'S OWN MEDICATION STORAGE XX SCH (08:00)
[2020-12-16] MEDS: LEVETIRACETAM 500MG TABLET PO SCH ×2 (09:29→20:59)
[2020-12-16] MEDS: CEFTRIAXONE 2 G in DEXTROSE 5% WATER 50 ML IV SCH (20:59)
[2020-12-16 21:25] LABS: PLATELET ESTIMATE NORMAL
[2020-12-17] VITALS: BP 119/66
[2020-12-17] MEDS: IPRATROPIUM/ALBUTEROL 0.5-3(2.5)MG/3ML NEB HHN SCH ×6 (00:42→20:15)
[2020-12-17 04:00] VITALS: BP 134/66
[2020-12-17] MEDS: MIDODRINE HCL 5MG TABLET PO SCH ×3 (05:08→21:38)
[2020-12-17] MEDS: GABAPENTIN 100MG CAPSULE PO SCH ×3 (05:08→21:37)
[2020-12-17 06:35] LABS: HEMATOCRIT. 23.2 % (36.0-48.0); HEMOGLOBIN. 7.4 g/dL (12.0-16.0); MEAN CORPUSCULAR VOLUME 93.8 fL (81.0-99.0); MEAN PLATELET VOLUME 8.7 fl (7.4-10.4); PLATELET 149 x1000/uL (130-400); RED BLOOD CELL COUNT 2.47 mill/uL (4.2-5.4); RED CELL DISTRIBUTION WIDTH 15.9 % (11.6-14.6)
[2020-12-17] MEDS: INSULIN LISPRO 100 UNITS/ML SUBCUT SCH ×4 (06:43→22:49)
[2020-12-17 08:00] VITALS: BP 117/54
[2020-12-17] MEDS: LEVETIRACETAM 500MG TABLET PO SCH ×2 (08:32→21:37)
[2020-12-17 12:00] VITALS: BP 110/53
[2020-12-17 16:00] VITALS: BP 123/80
[2020-12-17 17:05] LABS: PLATELET ESTIMATE NORMAL
[2020-12-17 20:00] VITALS: BP 121/60
[2020-12-17] MEDS: CEFTRIAXONE 2 G in DEXTROSE 5% WATER 50 ML IV SCH (21:37)
[2020-12-18] VITALS: BP 128/65
[2020-12-18] MEDS: IPRATROPIUM/ALBUTEROL 0.5-3(2.5)MG/3ML NEB HHN SCH ×5 (00:18→15:22)
[2020-12-18 04:00] VITALS: BP 132/55
[2020-12-18] MEDS: GABAPENTIN 100MG CAPSULE PO SCH ×2 (06:00→14:00)
[2020-12-18] MEDS: MIDODRINE HCL 5MG TABLET PO SCH ×2 (06:00→14:00)
[2020-12-18 07:26] LABS: HEMATOCRIT. 25.5 % (36.0-48.0); HEMOGLOBIN. 8.2 g/dL (12.0-16.0); MEAN CORPUSCULAR VOLUME 92.9 fL (81.0-99.0); MEAN PLATELET VOLUME 9.6 fl (7.4-10.4); PLATELET 156 x1000/uL (130-400); RED BLOOD CELL COUNT 2.75 mill/uL (4.2-5.4); RED CELL DISTRIBUTION WIDTH 15.8 % (11.6-14.6)
[2020-12-18] MEDS: INSULIN LISPRO 100 UNITS/ML SUBCUT SCH ×2 (07:40→12:40)
[2020-12-18 08:00] VITALS: BP 129/63
[2020-12-18] MEDS: LEVETIRACETAM 500MG TABLET PO SCH (09:16)
[2020-12-18 12:00] VITALS: BP 146/55
[2020-12-18] MEDS ORDERED: GABA-529 PO (12:22)
[2020-12-18] MEDS ORDERED: MIDO5TAB4 PO (12:22)
[2020-12-18] MEDS ORDERED: KEPP500 PO (12:22)
[2020-12-18] MEDS ORDERED: CEFT2FRO5 IV (12:24)
[2020-12-18 13:06] LABS: HEPATITIS B SURFACE AB < 3.1 mIU/mL
[2020-12-18 14:27] LABS: PLATELET ESTIMATE NORMAL
[2020-12-18 16:00] VITALS: BP 136/85
== END 2020-12-18 18:00 | DRG 425 ==
LOC: ER 13:09 → MICUSO 15:37 → EDBEDREQTM 15:39 → EDBEDREQ 15:39 → EDBEDREQSVC 11-18 08:15 → ENRESERV 11-18 08:41 → CANRESERV 11-18 08:41 → EDBEDREQSVC 11-18 09:02 → 5EST 11-18 09:42 → 3WST 11-18 15:15 → 5EST 11-18 15:18 → MICUSO 11-22 21:05 → 5EST 11-24 11:34 → 5WST 12-04 21:56 → 5EST 12-08 12:07 → 8WST 12-16 11:37
PROVIDERS: ADMIT Internal Medicine; ATTEND Internal Medicine
PROC: 5A1D70Z Performance of Urinary Filtration, Intermittent, Less than 6 Hours Per Day (ICD-10-PCS; 2020-11-17)
PROC: 05H533Z Insertion of Infusion Device into Right Subclavian Vein, Percutaneous Approach (ICD-10-PCS; 2020-11-18)
PROC: 5A1D70Z Performance of Urinary Filtration, Intermittent, Less than 6 Hours Per Day (ICD-10-PCS; 2020-11-18)
PROC: 5A1D70Z Performance of Urinary Filtration, Intermittent, Less than 6 Hours Per Day (ICD-10-PCS; 2020-11-20)
PROC: 5A1D70Z Performance of Urinary Filtration, Intermittent, Less than 6 Hours Per Day (ICD-10-PCS; 2020-11-23)
PROC: 5A1D70Z Performance of Urinary Filtration, Intermittent, Less than 6 Hours Per Day (ICD-10-PCS; 2020-11-24)
PROC: 5A1D80Z Performance of Urinary Filtration, Prolonged Intermittent, 6-18 hours Per Day (ICD-10-PCS; 2020-11-26)
PROC: 5A1D70Z Performance of Urinary Filtration, Intermittent, Less than 6 Hours Per Day (ICD-10-PCS; 2020-11-27)
PROC: 5A1D70Z Performance of Urinary Filtration, Intermittent, Less than 6 Hours Per Day (ICD-10-PCS; 2020-11-29)
PROC: 4A00X4Z Measurement of Central Nervous Electrical Activity, External Approach (ICD-10-PCS; principal; 2020-11-30)
PROC: 5A1D70Z Performance of Urinary Filtration, Intermittent, Less than 6 Hours Per Day (ICD-10-PCS; 2020-12-01)
PROC: 5A1D70Z Performance of Urinary Filtration, Intermittent, Less than 6 Hours Per Day (ICD-10-PCS; 2020-12-04)
PROC: 5A1D70Z Performance of Urinary Filtration, Intermittent, Less than 6 Hours Per Day (ICD-10-PCS; 2020-12-07)
PROC: 5A09457 Assistance with Respiratory Ventilation, 24-96 Consecutive Hours, Continuous Positive Airway Pressure (ICD-10-PCS; 2020-12-07)
PROC: 5A1D70Z Performance of Urinary Filtration, Intermittent, Less than 6 Hours Per Day (ICD-10-PCS; 2020-12-09)
PROC: 5A1D70Z Performance of Urinary Filtration, Intermittent, Less than 6 Hours Per Day (ICD-10-PCS; 2020-12-11)
PROC: 5A09357 Assistance with Respiratory Ventilation, Less than 24 Consecutive Hours, Continuous Positive Airway Pressure (ICD-10-PCS; 2020-12-11)
PROC: 5A1D70Z Performance of Urinary Filtration, Intermittent, Less than 6 Hours Per Day (ICD-10-PCS; 2020-12-14)
PROC: 5A1D70Z Performance of Urinary Filtration, Intermittent, Less than 6 Hours Per Day (ICD-10-PCS; 2020-12-16)
PROC: 5A1D70Z Performance of Urinary Filtration, Intermittent, Less than 6 Hours Per Day (ICD-10-PCS; 2020-12-18)
DX: E87.79 Other fluid overload (principal); U07.1 COVID-19; E87.5 Hyperkalemia; N18.6 End stage renal disease; E11.22 Type 2 diabetes mellitus with diabetic chronic kidney disease; I95.9 Hypotension, unspecified; L89.323 Pressure ulcer of left buttock, stage 3; E87.2 Acidosis; E11.51 Type 2 diabetes mellitus with diabetic peripheral angiopathy without gangrene; L89.626 Pressure-induced deep tissue damage of left heel; I45.10 Unspecified right bundle-branch block; D63.1 Anemia in chronic kidney disease; G40.909 Epilepsy, unspecified, not intractable, without status epilepticus; J96.02 Acute respiratory failure with hypercapnia; G93.40 Encephalopathy, unspecified; I33.0 Acute and subacute infective endocarditis; I50.32 Chronic diastolic (congestive) heart failure; Z20.822 Contact with and (suspected) exposure to COVID-19; I21.4 Non-ST elevation (NSTEMI) myocardial infarction; I13.2 Hypertensive heart and chronic kidney disease with heart failure and with stage 5 chronic kidney disease, or end stage renal disease; R57.1 Hypovolemic shock; I70.90 Unspecified atherosclerosis; Z99.2 Dependence on renal dialysis; Z88.6 Allergy status to analgesic agent; Z88.1 Allergy status to other antibiotic agents; Z79.899 Other long term (current) drug therapy; Z91.15 Patient's noncompliance with renal dialysis; Z91.19 Patient's noncompliance with other medical treatment and regimen; Z86.73 Personal history of transient ischemic attack (TIA), and cerebral infarction without residual deficits; I05.9 Rheumatic mitral valve disease, unspecified
CPT/HCPCS: 36415; 36600; 70551; 71045; 72191; 73706; 76937; 80048; 80053; 80202; 82040; 82375; 82805; 82962; 83735; 83880; 84100; 84134; 84145; 84484; 85025; 85651; 86140; 86705; 86706; 87426; 92610; 93005; 93306; 93923; 93970; 94640; 94660; 95816; 97116; 97162; 97164; 97166; 97535; 99285; A6261; C1725; C1893; J0696; J0885; J1815; J1953; J2405; J3370; J3490; J7030; J7040; J7050; J7060; P9041; Q9967; U0003